=== PATIENT | female | born 1990 | race Caucasian/White ===

== ENCOUNTER 2020-03-22 09:39 | Outpatient (CLI) | payer OTHER ==
[2020-03-22 10:03] LABS: CALCIUM 9.2 mg/dL (8.5-10.3); CREATININE 0.7 mg/dL (0.4-1.0)
[2020-03-22 10:09] LABS: BASOPHILS # (AUTO) 0.1 10^3/uL (0.0-0.1); BASOPHILS % (AUTO) 0.7 %; EOSINOPHILS # (AUTO) 0.5 10^3/uL (0.0-0.7); EOSINOPHILS % (AUTO) 6.1 %; HGB - HEMOGLOBIN 14.1 g/dL (12.0-16.0); LYMPHOCYTES # (AUTO) 2.1 10^3/uL (1.5-3.5); LYMPHOCYTES % (AUTO) 26.2 %; MEAN CORPUSCULAR HGB CONC 32.6 g/dL (32.0-36.0); MEAN CORPUSCULAR VOLUME 88.7 fL (81.0-99.0); MONOCYTES # (AUTO) 0.3 10^3/uL (0.0-1.0); MONOCYTES % (AUTO) 4.2 %; NEUTROPHILS % (AUTO) 62.3 %; PLT - PLATELET COUNT 210 10^3/uL (130-450); RED BLOOD COUNT 4.87 10^6/uL (4.20-5.40); RED CELL DISTRIBUTION WIDTH 13.2 % (12.0-15.0); WHITE BLOOD COUNT 8.1 x10^3/uL (4.8-10.8)
== END 2020-03-22 09:40 | disposition home or self-care (01) ==
LOC: LAB 09:39
PROVIDERS: ATTEND Physician Assistant
DX: Q61.9 Cystic kidney disease, unspecified (principal); R10.9 Unspecified abdominal pain
CPT/HCPCS: 36415; 80048; 85025

== ENCOUNTER 2020-03-22 10:02 | Outpatient (CLI) | payer OTHER ==
--- NOTE | 2020-03-22 16:12 | Ultrasound Report ---
PROCEDURE: Retroperitoneal INDICATIONS: CYSTIC KIDNEY DISEASE, ABD PAIN, HEMATURIA TECHNIQUE: Real-time scanning was performed of the retroperitoneal organs, with image documentation. COMPARISON: Renal ultrasound dated 10/14/2010. FINDINGS: Kidneys: Kidneys are mildly enlarged and symmetric. Right kidney measures 13.2 cm long; left kidney measures 13.2 cm long. Right renal cortical thickness is 1.1 cm; left renal cortical thickness is 1 .3 cm. No solid masses, hydronephrosis, or nephrolithiasis. Numerous cysts are seen in both kidneys , the largest of which is located in the left kidney measuring 5.1 x 4.7 x 4.6 cm. No solid renal mas s is identified. Bladder: Pre-void bladder volume is 294 mL. Post-void residual is 0 mL. Pre-void images demonstrat e no intraluminal masses or stones. On pre-void images, right-sided ureteral jets are noted with col or Doppler interrogation. (Of note, ureteral jets may not be detectable in up to 25% of cases due to insufficient differences in specific gravity between ureteral and bladder urine). Miscellaneous: No free pelvic fluid. IMPRESSION: 1. Kidneys are enlarged by multiple cysts bilaterally. No solid renal mass is seen. 2. No nephrolithiasis or hydronephrosis. Reviewed by: Masood Fam MD on 03/22/2020 4:10 PM PST Approved by: Masood Fam MD on 03/22/2020 4:10 PM PST Station ID: [id number]
== END 2020-03-22 10:03 | disposition home or self-care (01) ==
LOC: DI 10:02
PROVIDERS: ATTEND Physician Assistant
DX: Q61.02 Congenital multiple renal cysts (principal); Q61.9 Cystic kidney disease, unspecified; R10.9 Unspecified abdominal pain
CPT/HCPCS: 36415; 76770; 80048; 85025

== ENCOUNTER 2022-08-02 08:00 | Outpatient (CLI) | payer OTHER ==
[2022-08-02 15:46] LABS: BILIRUBIN,URINE NEGATIVE (NEGATIVE); GLUCOSE, URINE (UA) NEGATIVE (NEGATIVE); KETONES,URINE (UA) NEGATIVE (NEGATIVE); LEUKOCYTE ESTERASE, URINE NEGATIVE (NEGATIVE); NITRITE,URINE POSITIVE (NEGATIVE); OCCULT BLOOD,URINE NEGATIVE (NEGATIVE); PROTEIN,URINE NEGATIVE (NEGATIVE); UROBILINOGEN,URINE 0.2 (NORMAL) E.U./dL (NORMAL)
[2022-08-02 15:59] LABS: CLARITY,URINE HAZY (CLEAR); RBC,URINE 0-5 /HPF (0-5); SQUAMOUS EPITHELIAL CELL,UR MANY Squamous (<= Few); WBC,URINE 0-3 /HPF (0-5)
[2022-08-02 16:00] LABS: BACTERIA,URINE Moderate /HPF (None Seen)
== END 2022-08-02 23:59 | disposition home or self-care (01) ==
LOC: LAB.WC 08:00
PROVIDERS: ATTEND Nurse Practitioner
DX: Z34.90 Encounter for supervision of normal pregnancy, unspecified, unspecified trimester (principal)
CPT/HCPCS: 81001; 87086

== ENCOUNTER 2022-08-08 22:11 | Outpatient (CLI) | payer OTHER ==
--- NOTE | 2022-08-09 08:40 | Ultrasound Report ---
PROCEDURE: OB First Trimester w/TV INDICATIONS: POSITIVE TEST OUTSIDE/PRIOR DATING DATA: Last menstrual period (LMP): 06/17/2022. LMP-based estimated date of delivery (LENNIE): 03/24/2023. First dating scan (date and location): 08/08/2022. Estimated date of delivery (LENNIE) from first dating scan: 03/26/2023. The below data below was generated using the ultrasound LENNIE of 03/26/2023 TECHNIQUE: Real-time scanning was performed of the fetus and maternal pelvic organs, with image documentation. Endovaginal scanning was also performed to better visualize the fetus and maternal ovaries. COMPARISON: None FINDINGS: Single living intrauterine . Arcuate uterus, with the gestational sac within the right side. Myometrium surrounding the gestational sac. Gestational sac measures 2.5 cm. Small perige stational fluid collection measuring 2 x 1.4 x 1.3 cm. Embryo: pole measures 1.1 cm, corresponding to 7 weeks 1 day Heart rate: 145 bpm Measurement variability in dating: +/- 4 weeks by LMP, +/- 7 days by mean sac diameter (use before 6 weeks gestation if crown-rump length not able to be measured), +/- 5 days by crown-rump length (6-12 weeks gestation). Maternal organs: Ovaries are unremarkable. Left corpus luteum cysts. IMPRESSION: Single living intrauterine at 7 weeks 1 day, LENNIE of 03/26/2023. Findings are concordant wit h clinical dating. Arcuate uterus. The gestational sac lies asymmetrically to the right, and with adequate myometrial co verage. Attention on follow-up. Reviewed by: Asif Brown on 08/09/2022 8:38 AM PDT Approved by: Asif Brown on 08/09/2022 8:38 AM PDT Station ID: [id number]
== END 2022-08-08 22:12 | disposition home or self-care (01) ==
LOC: DI 22:11
PROVIDERS: ATTEND Nurse Practitioner
DX: Z34.91 Encounter for supervision of normal pregnancy, unspecified, first trimester (principal)

== ENCOUNTER 2022-08-29 08:00 | Outpatient (CLI) | payer OTHER ==
[2022-08-30 15:25] LABS: CHLAMYDIA TRACHOMATIS DNA NEGATIVE (NEGATIVE)
[2022-08-30 15:26] LABS: NEISSERIA GONORRHOEAE DNA NEGATIVE (NEGATIVE)
== END 2022-08-29 23:59 | disposition home or self-care (01) ==
LOC: LAB.R 08:00 → LAB.WC 23:59
PROVIDERS: ATTEND Obstetrics & Gynecology
DX: O09.91 Supervision of high risk pregnancy, unspecified, first trimester (principal)
CPT/HCPCS: 87491; 87591; 87661

== ENCOUNTER 2022-09-01 08:00 | Outpatient (CLI) | payer OTHER ==
[2022-09-01 10:44] LABS: CREATININE,URINE 165.4 mg/dL
== END 2022-09-01 23:59 | disposition home or self-care (01) ==
LOC: LAB.R 08:00
PROVIDERS: ATTEND Obstetrics & Gynecology
DX: Q61.3 Polycystic kidney, unspecified (principal)
CPT/HCPCS: 82570; 84156

== ENCOUNTER 2022-09-01 09:36 | Outpatient (CLI) | payer OTHER ==
[2022-09-01 10:14] LABS: BASOPHILS % (AUTO) 0.4 %; EOSINOPHILS # (AUTO) 0.2 10^3/uL (0.0-0.7); EOSINOPHILS % (AUTO) 2.3 %; HCT - HEMATOCRIT 36.2 % (37.0-47.0); HGB - HEMOGLOBIN 11.9 g/dL (12.0-16.0); LYMPHOCYTES # (AUTO) 1.8 10^3/uL (1.5-3.5); LYMPHOCYTES % (AUTO) 21.9 %; MEAN CORPUSCULAR HEMOGLOBIN 28.5 pg (27.0-31.0); MEAN CORPUSCULAR HGB CONC 32.9 g/dL (32.0-36.0); MEAN CORPUSCULAR VOLUME 86.6 fL (81.0-99.0); MEAN PLATELET VOLUME 11.3 fL (7.9-10.8); MONOCYTES # (AUTO) 0.3 10^3/uL (0.0-1.0); MONOCYTES % (AUTO) 3.8 %; NEUTROPHILS # (AUTO) 5.8 10^3/uL (1.5-6.6); NEUTROPHILS % (AUTO) 71.4 %; PLT - PLATELET COUNT 168 10^3/uL (130-450); RED BLOOD COUNT 4.18 10^6/uL (4.20-5.40); RED CELL DISTRIBUTION WIDTH 13.2 % (12.0-15.0); WHITE BLOOD COUNT 8.1 x10^3/uL (4.8-10.8)
[2022-09-01 10:38] LABS: ALBUMIN 3.4 g/dL (3.2-5.5); ALBUMIN/GLOBULIN RATIO 0.9 (1.0-2.2); BILIRUBIN,TOTAL 0.5 mg/dL (0.2-1.0); CALCIUM 8.9 mg/dL (8.5-10.3); CREATININE 0.6 mg/dL (0.4-1.0); TOTAL PROTEIN 7.4 g/dL (6.7-8.2)
[2022-09-02 06:09] LABS: HBsAG SCREEN Negative (Negative); HCV AB Non Reactive (Non Reactive); HIV SCREEN 4TH GENERATION Non Reactive (Non Reactive)
[2022-09-02 07:09] LABS: RPR Non Reactive (Non Reactive)
[2022-09-03 09:08] LABS: VARICELLA-ZOSTER AB IGG <135 index (Immune >165)
== END 2022-09-01 09:37 | disposition home or self-care (01) ==
LOC: LAB 09:36
PROVIDERS: ATTEND Obstetrics & Gynecology
DX: Z34.90 Encounter for supervision of normal pregnancy, unspecified, unspecified trimester (principal); Q61.3 Polycystic kidney, unspecified
CPT/HCPCS: 36415; 80053; 85025; 86592; 86762; 86787; 86803; 86850; 86900; 86901; 87340; 87389

== ENCOUNTER 2022-11-03 11:40 | Outpatient (CLI) | payer OTHER ==
[2022-11-06 15:09] LABS: AFP MOM 1.47 (.); GESTAT. AGE METHOD Ultrasound (.); INSULIN DEP DIABETES No (.); MATERNAL AGE AT EDD 32.9 yr (.); MULTIPLE GESTATION No (.); OPEN SPINA BIFIDA RISK 1 IN 2965 (.); RACE Caucasian (.); RESULTS Report (.); TEST RESULTS *Screen Negative* (.); WEIGHT 275 lbs (.)
== END 2022-11-03 11:41 | disposition home or self-care (01) ==
LOC: LAB 11:40
PROVIDERS: ATTEND Obstetrics & Gynecology
DX: O09.892 Supervision of other high risk pregnancies, second trimester (principal)
CPT/HCPCS: 36415; 82105

== ENCOUNTER 2022-11-05 11:12 | Outpatient (CLI) | payer OTHER ==
--- NOTE | 2022-11-06 17:46 | Ultrasound Report ---
PROCEDURE: OB Detailed Eval INDICATIONS: SUPERVISION OF OUTSIDE/PRIOR DATING DATA: Last menstrual period (LMP): 06/17/2022. LMP-based estimated date of delivery (LENNIE): 03/24/2023. First dating scan (date and location): 08/08/2022. Estimated date of delivery (LENNIE) from first dating scan: 03/26/2023. TECHNIQUE: Real-time scanning was performed of the fetus, with image documentation and biometric measurements. Endovaginal scanning: Performed COMPARISON: None. FINDINGS: General: A single living intrauterine gestation is present. Presentation: Reach Placenta: Placental position is posterior, without previa. Amniotic fluid index: 12.6 cm, within normal limits for gestational age. heart rate: 147 beats per minute. Maternal cervical canal: 3.4 cm long; normal length is 2.5 cm or more. biometrics: Biparietal diameter: 4.38 cm, 19 weeks, 2 days Head circumference: 17.6 cm, 20 weeks, 1 day Abdominal circumference: 15.4 cm, 20 weeks, 4 days Femur length: 3.5 cm, 21 weeks, 1 day Estimated gestational age from initial scan: 19 weeks, 6 days Composite gestational age from present scan: 19 weeks, 6 days Estimated weight and percentile: 372.8 g, 89.3 percentile Measurement variability in biometric dating: +/- 10 days from 12-20 weeks gestation, +/- 2 weeks from 20-30 weeks gestation, +/- 3 weeks at 30 weeks gestation or later. Anatomic survey: Neuro: Ventricles are normal at less than 10 mm. Cisterna magna is normal at 3-11 mm. Cerebellum i s normal in size and morphology. Nuchal skin fold: Normal at less than 6 mm between 14 and 20 weeks gestational age. Face: Nose and lips, facial profile are normal. Spine: No evidence for spina bifida. Heart: 4-chambered heart is present, with normal ventricular outflow tracts. Diaphragm: Diaphragm is intact. Stomach: Left-sided stomach is present. Kidneys: No hydronephrosis. Normal is less than 5 mm in 2nd trimester, less than 7 mm in 3rd trimester. Cord: 3 vessel cord has orthotopic insertion. Bladder: Normal in size. Extremities: All 4 extremities are visualized. IMPRESSION: 1. Single live intrauterine gestation with a composite gestational age of 19 weeks, 6 days which is c oncordant with dates by initial scan. 2. 89th percentile for growth. Developing macrosomia cannot be excluded. 3. No sonographic anatomic abnormalities. Reviewed by: Ayla Reyez MD on 11/06/2022 5:45 PM PDT Approved by: Ayla Reyez MD on 11/06/2022 5:45 PM PDT Station ID: [id number]
== END 2022-11-05 11:13 | disposition home or self-care (01) ==
LOC: DI 11:12
PROVIDERS: ATTEND Obstetrics & Gynecology
DX: O09.892 Supervision of other high risk pregnancies, second trimester (principal); Z3A.19 19 weeks gestation of pregnancy

== ENCOUNTER 2022-12-16 22:21 | Emergency (ER) | payer OTHER ==
[2022-12-16 23:14] LABS: BILIRUBIN,URINE NEGATIVE (NEGATIVE); GLUCOSE, URINE (UA) NEGATIVE (NEGATIVE); KETONES,URINE (UA) NEGATIVE (NEGATIVE); LEUKOCYTE ESTERASE, URINE SMALL (NEGATIVE); NITRITE,URINE POSITIVE (NEGATIVE); OCCULT BLOOD,URINE NEGATIVE (NEGATIVE); PH,URINE 5.5 PH (5.0-7.5); PROTEIN,URINE NEGATIVE (NEGATIVE); UROBILINOGEN,URINE 0.2 (NORMAL) E.U./dL (NORMAL)
[2022-12-16 23:23] LABS: CLARITY,URINE HAZY (CLEAR); HCG UR QUAL POSITIVE
[2022-12-16 23:27] LABS: ALBUMIN/GLOBULIN RATIO 0.8 (1.0-2.2); BILIRUBIN,TOTAL 0.4 mg/dL (0.2-1.0); CALCIUM 8.4 mg/dL (8.5-10.3); CREATININE 0.7 mg/dL (0.4-1.0); POTASSIUM 3.8 mmol/L (3.5-5.0); TOTAL PROTEIN 6.9 g/dL (6.7-8.2)
[2022-12-16 23:36] LABS: BASOPHILS % (AUTO) 0.2 %; EOSINOPHILS # (AUTO) 0.3 10^3/uL (0.0-0.7); EOSINOPHILS % (AUTO) 2.2 %; HCT - HEMATOCRIT 31.4 % (37.0-47.0); HGB - HEMOGLOBIN 10.2 g/dL (12.0-16.0); LYMPHOCYTES # (AUTO) 1.9 10^3/uL (1.5-3.5); LYMPHOCYTES % (AUTO) 17.1 %; MEAN CORPUSCULAR HEMOGLOBIN 29.8 pg (27.0-31.0); MEAN CORPUSCULAR HGB CONC 32.5 g/dL (32.0-36.0); MEAN CORPUSCULAR VOLUME 91.8 fL (81.0-99.0); MEAN PLATELET VOLUME 10.4 fL (7.9-10.8); MONOCYTES # (AUTO) 0.4 10^3/uL (0.0-1.0); MONOCYTES % (AUTO) 3.9 %; NEUTROPHILS # (AUTO) 8.7 10^3/uL (1.5-6.6); NEUTROPHILS % (AUTO) 76.1 %; PLT - PLATELET COUNT 222 10^3/uL (130-450); RED BLOOD COUNT 3.42 10^6/uL (4.20-5.40); RED CELL DISTRIBUTION WIDTH 14.2 % (12.0-15.0); WHITE BLOOD COUNT 11.4 x10^3/uL (4.8-10.8)
[2022-12-16 23:38] LABS: AMORPHOUS SEDIMENT,UR Few /LPF; BACTERIA,URINE Many /HPF (None Seen); RBC,URINE 0-5 /HPF (0-5); SQUAMOUS EPITHELIAL CELL,UR MANY Squamous (<= Few)
--- NOTE | 2022-12-17 00:08 | ED Physician Documentation ---
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 Symptoms began earlier today without inciting event. Patient is approximately 26 weeks , has had US in this demonstrating IUP. Denies vaginal bleeding, denies pelvic pain. Patient has had sensation of incomplete voiding when urinating, also since earlier today. Denies fever, hematuria, Review of Systems Constitutional: denies: Fever GI: reports: Nausea, Vomiting. 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 : Other HEENT: None Psych: Depression Musculoskeletal: None Derm: None - Past Surgical History Past Surgical History: No - Present Medications Home Medications: Ambulatory Orders Medication Instructions Recorded Confirmed Aspirin [[place] Aspirin] 81 mg PO DAILY 12/16/22 12/16/22 Venlafaxine ER [Effexor ER] 75 mg PO DAILY 12/16/22 12/16/22 Amox/Clav 875/125 [Augmentin 1 tablet PO Q12H 7 Days #14 tablet 12/17/22 875/125 Tab] - Allergies Allergies/Adverse Reactions: Allergies Allergy/AdvReac Type Severity Reaction Status Date / Time No Known Drug Allergies Allergy Verified 12/16/22 22:31 - Social History Does the pt smoke?: No Smoking Status: Never smoker - Immunizations Immunizations are current?: Yes PD ED PE NORMAL - Vitals Vital signs reviewed: Yes - General General: Alert and oriented X 3, No acute distress, Well developed/nourished - Abdomen Abdomen: Soft, Non tender, Other - Back Back: No CVA TTP - Derm Derm: Normal color, Warm and dry Results - Vitals Vitals: Oxygen O2 Source Room air - Labs Labs: Laboratory Tests 12/16/22 12/16/22 12/16/22 22:35 23:10 23:30 WBC 11.4 H RBC 3.42 L Hgb 10.2 L Hct 31.4 L MCV 91.8 MCH 29.8 MCHC 32.5 RDW 14.2 Plt Count 222 MPV 10.4 Neut # (Auto) 8.7 H Lymph # (Auto) 1.9 [place] # (Auto) 0.4 Eos # (Auto) 0.3 Baso # (Auto) 0.0 Absolute Nucleated RBC 0.00 Nucleated RBC % 0.0 Sodium 136 Potassium 3.8 Chloride 105 Carbon Dioxide 20 L Anion Gap 11.0 BUN 11 Creatinine 0.7 Estimated GFR (MDRD) 97 Glucose 99 Calcium 8.4 L Total Bilirubin 0.4 AST 16 ALT 14 Alkaline Phosphatase 85 Total Protein 6.9 Albumin 3.0 L Globulin 3.9 Albumin/Globulin Ratio 0.8 L Lipase 39 Urine Color YELLOW Urine Clarity HAZY Urine pH 5.5 Ur Specific [place] >=1.030 H Urine Protein NEGATIVE Urine Glucose (UA) NEGATIVE Urine Ketones NEGATIVE Urine Occult Blood NEGATIVE Urine Nitrite POSITIVE H Urine Bilirubin NEGATIVE Urine Urobilinogen 0.2 (NORMAL) Ur Leukocyte Esterase SMALL H Urine RBC 0-5 Urine WBC 6-10 H Ur Squamous Epith Cells MANY Squamous H Amorphous Sediment Few Urine Bacteria Many H Ur Microscopic Review INDICATED Urine Culture Comments NOT INDICATED Urine HCG, Qual POSITIVE PD Medical Decision Making - ED course Complexity details: reviewed results, re-evaluated patient, considered differential, d/w patient ED course: Normal ER abdominal panel including LFTs, lipase. Mild leukocytosis (WBC 11.4) and hgb slightly low at 10.2. UA is positive for nitrites. On microscopy, no RBC, 6-10 wbc/hpf, many bacteria but also many squamous cells. I performed bedside US of RUQ (retail key holder is not available at this time at [facility]). It appears that there are gallstones in a non-distended gallbladder; negative sonographic hinojosa's. Given normal LFTs and that patient is in NAD and declines pain medication, this finding can be further evaluated in outpatient setting if necessary. Biliary colic could account for some of her symptoms, though my ultrasound findings could be incidental. Given abnormal UA in , will treat for UTI (given augmentin in ED and rx for one-week course is e-prescribed to patient's pharmacy of choice). 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, next available appointments Departure - Departure Disposition: 01 Home, Self Care Clinical Impression: Gallstones Urinary tract infection Qualifiers: Urinary tract infection type: acute cystitis Hematuria presence: without hematuria Qualified Code(s): N30.00 - Acute cystitis without hematuria Condition: Good Instructions: ED UTI Cystitis Female, ED Abdominal Pain Preg Gallstones Follow-Up: Bret Snowden DO [Primary Care Provider] - Prescriptions: Amox/Clav 875/125 [Augmentin 875/125 Tab] 1 tablet PO Q12H 7 Days #14 tablet Comments: There were no concerning nor diagnostic findings on your blood test tonight. The urinalysis has some findings to suggest a urinary tract infection; given that your symptoms are also consistent with UTI and risk of complications of untreated UTI in , you were given the first dose of an antibiotic (augmentin) in the ER, and a prescription for a one-week course of this antibiotic has been electronically submitted to [facility] pharmacy in [place]. On my bedside ultrasound, it appears to me that you have a few gallstones in your gallbladder. This could account for your symptoms. Your liver function t ests (blood tests) were normal, and you have indicated that the pain is not severe enough to require prescription pain medication. Overall, this would indicate that you can have a follow-up/confirmatory ultrasound in the outpatient setting at the discretion of your primary care provider. I recommend that you contact your primary care provider on Sunday when their office opens to arrange for next available appointment for reevaluation of both the urinary tract infection symptoms as well as possible gallstone workup (ultrasound). Forms: PCP List Discharge Date/Time: 12/17/22 01:06
[2022-12-17] MEDS ORDERED: AMOX/CLAV 875 MG/125 MG TABLET PO STA (00:44)
[2022-12-17] MEDS ORDERED: SODIUM CHLORIDE 0.9% 1,000 ML IV STA (00:52)
[2022-12-17 01:06] VITALS: BP 140/86; O2SAT 100
== END 2022-12-17 01:06 | disposition home or self-care (01) ==
LOC: ED 22:21
DX: O99.612 Diseases of the digestive system complicating pregnancy, second trimester (principal); K80.20 Calculus of gallbladder without cholecystitis without obstruction; O23.12 Infections of bladder in pregnancy, second trimester; Z3A.26 26 weeks gestation of pregnancy; Z79.82 Long term (current) use of aspirin; Z79.899 Other long term (current) drug therapy
CPT/HCPCS: 36415; 80053; 81001; 81025; 83690; 85025; 99283; 99284; A9270; 81003; 87086

== ENCOUNTER 2022-12-29 10:28 | Outpatient (CLI) | payer OTHER ==
[2022-12-29 12:06] LABS: HCT - HEMATOCRIT 33.9 % (37.0-47.0); HGB - HEMOGLOBIN 11.1 g/dL (12.0-16.0); MEAN CORPUSCULAR HEMOGLOBIN 29.7 pg (27.0-31.0); MEAN CORPUSCULAR HGB CONC 32.7 g/dL (32.0-36.0); MEAN CORPUSCULAR VOLUME 90.6 fL (81.0-99.0); MEAN PLATELET VOLUME 10.2 fL (7.9-10.8); RED BLOOD COUNT 3.74 10^6/uL (4.20-5.40); WHITE BLOOD COUNT 9.6 x10^3/uL (4.8-10.8)
== END 2022-12-29 10:29 | disposition home or self-care (01) ==
LOC: LAB 10:28
PROVIDERS: ATTEND Obstetrics & Gynecology
DX: O09.892 Supervision of other high risk pregnancies, second trimester (principal)
CPT/HCPCS: 36415; 82950; 85027; 86850

== ENCOUNTER 2023-02-01 10:13 | Outpatient (CLI) | payer OTHER ==
[2023-02-01 10:44] LABS: HCT - HEMATOCRIT 30.7 % (37.0-47.0); HGB - HEMOGLOBIN 10.2 g/dL (12.0-16.0); MEAN CORPUSCULAR HEMOGLOBIN 29.4 pg (27.0-31.0); MEAN CORPUSCULAR HGB CONC 33.2 g/dL (32.0-36.0); MEAN CORPUSCULAR VOLUME 88.5 fL (81.0-99.0); MEAN PLATELET VOLUME 10.5 fL (7.9-10.8); RED BLOOD COUNT 3.47 10^6/uL (4.20-5.40); RED CELL DISTRIBUTION WIDTH 14.4 % (12.0-15.0); WHITE BLOOD COUNT 9.7 x10^3/uL (4.8-10.8)
[2023-02-01 11:03] LABS: ALBUMIN 3.4 g/dL (3.2-5.5); ALBUMIN/GLOBULIN RATIO 1.1 (1.0-2.2); BILIRUBIN,TOTAL 0.4 mg/dL (0.2-1.0); CREATININE 0.4 mg/dL (0.6-1.3); POTASSIUM 4.1 mmol/L (3.5-4.5); TOTAL PROTEIN 6.5 g/dL (6.4-8.9); URIC ACID 5.8 mg/dL (2.3-6.6)
[2023-02-01 11:03] LABS: CREATININE,URINE 145.1 mg/dL; PROTEIN/CREATININE RATIO,URINE 0.2 (<=0.2)
== END 2023-02-01 10:14 | disposition home or self-care (01) ==
LOC: LAB 10:13
PROVIDERS: ATTEND Nurse Practitioner
DX: O16.9 Unspecified maternal hypertension, unspecified trimester (principal); Z87.59 Personal history of other complications of pregnancy, childbirth and the puerperium
CPT/HCPCS: 36415; 80053; 82570; 84156; 84550; 85027

== ENCOUNTER 2023-02-13 07:04 | Outpatient (CLI) | payer OTHER ==
--- NOTE | 2023-02-13 10:12 | Ultrasound Report ---
PROCEDURE: OB Biophysical Profile INDICATIONS: HYPERTENSION OUTSIDE/PRIOR DATING DATA: Last menstrual period (LMP): 06/17/22. LMP-based estimated date of delivery (LENNIE): 03/24/2023. First dating scan (date and location): 08/08/2022. Estimated date of delivery (LENNIE) from first dating scan: 03/26/2023. The below data below was generated using the ultrasound LENNIE of 03/26/2023 TECHNIQUE: Real-time scanning was performed of the fetus, with image documentation and biometric callie surements. Biophysical profile was also obtained. Endovaginal scanning: Not performed COMPARISON: 11/05/2022 FINDINGS: General: A single living intrauterine gestation is present. Presentation: Cephalic Placenta: Placental position is posterior, without previa. Amniotic fluid index: 14.7 cm, within normal limits for gestational age. heart rate: 166 beats per minute. Maternal cervical canal: Not seen at late stage of Estimated gestational age from initial scan: 34 weeks 1 day Biophysical profile: Tone: 2 points. Movement: 2 points. Respiration: 0 points. Largest pocket of fluid: 2 points. Umbilical artery Doppler: 2.65, 2.36, 2.19 IMPRESSION: 1. Living third trimester intrauterine with no sonographic evidence of complications. 2. Ultrasound biophysical profile is 6 out of 8 3. Normal cord Dopplers. Reviewed by: Zackery Mcconnell MD on 02/13/2023 10:10 AM PDT Approved by: Zackery Mcconnell MD on 02/13/2023 10:10 AM PDT Station ID: [id number]
== END 2023-02-13 07:05 | disposition home or self-care (01) ==
LOC: DI 07:04
PROVIDERS: ATTEND Nurse Practitioner
DX: O16.3 Unspecified maternal hypertension, third trimester (principal); O99.213 Obesity complicating pregnancy, third trimester; Z3A.34 34 weeks gestation of pregnancy; Z87.59 Personal history of other complications of pregnancy, childbirth and the puerperium

== ENCOUNTER 2023-02-13 07:49 | Outpatient (CLI) | payer OTHER ==
--- NOTE | 2023-02-13 08:15 | PROCEDURE REPORT ---
- HPI Diagnosis/Indication for NST: Other (Polycystic Kidney Disease.) Vital Signs Temperature 97.9 F 02/13/23 07:55 Heart Rate 76 02/13/23 07:55 Respiratory Rate 18 02/13/23 07:55 Blood Pressure 145/85 H 02/13/23 07:55 Temperature 97.9 F 02/13/23 07:55 Heart Rate 76 02/13/23 07:55 Respiratory Rate 18 02/13/23 07:55 Blood Pressure 145/85 H 02/13/23 07:55 O2 Saturation If not protocol: Oxygen Flow, liters/minute - Results and Plan Plan: Patient is a 32-year-old -0-0-1 at 34 weeks 2 days gestation here for scheduled NST. NST Performed 02/13/2023 NST Read 02/13/2023 FHT: 135 bpm baseline, moderate variability, accelerations present, no decelerations. Reactive NST [place]: Quiescent Diagnosis 34 weeks gestation Polycystic kidney disease Continue with twice-weekly NST.
[2023-02-13 08:17] VITALS: BP 145/85
== END 2023-02-13 09:00 | disposition home or self-care (01) ==
LOC: WFO 07:49 → FBP 07:52 → WFO 09:00
PROVIDERS: ATTEND Obstetrics & Gynecology
DX: O16.9 Unspecified maternal hypertension, unspecified trimester (principal); O26.833 Pregnancy related renal disease, third trimester; Z3A.34 34 weeks gestation of pregnancy
CPT/HCPCS: 59025

== ENCOUNTER 2023-02-16 09:01 | Outpatient (CLI) | payer OTHER ==
[2023-02-16 09:24] VITALS: O2SAT 98
[2023-02-16 09:53] VITALS: BP 125/73
--- NOTE | 2023-02-16 10:24 | PROCEDURE REPORT ---
- HPI Diagnosis/Indication for NST: Other (Polycystic kidney disease) Vital Signs Temperature 98.2 F 02/16/23 09:22 Heart Rate 85 02/16/23 09:22 Respiratory Rate 17 02/16/23 09:22 Blood Pressure 130/91 H 02/16/23 09:22 O2 Saturation 98 02/16/23 09:22 Temperature 98.2 F 02/16/23 09:22 Heart Rate 81 02/16/23 09:45 Respiratory Rate 17 02/16/23 09:22 Blood Pressure 125/73 02/16/23 09:45 O2 Saturation 98 02/16/23 09:22 If not protocol: Oxygen Flow, liters/minute - Results and Plan Plan: Patient is a 32-year-old -0-0-1 at 34 weeks 5 days gestation here for scheduled NST. NST Performed 02/16/2023 NST Read 02/16/2023 FHT: 135 bpm baseline, moderate variability, accelerations present, no decelerations. Reactive NST [place]: Quiescent Diagnosis 34 weeks gestation Polycystic kidney disease Continue with twice-weekly NST.
== END 2023-02-16 10:35 | disposition home or self-care (01) ==
LOC: WFO 09:01 → FBP 09:20 → WFO 10:35
PROVIDERS: ATTEND Obstetrics & Gynecology
DX: O26.833 Pregnancy related renal disease, third trimester (principal); N28.1 Cyst of kidney, acquired; O16.9 Unspecified maternal hypertension, unspecified trimester; O99.213 Obesity complicating pregnancy, third trimester; Z3A.34 34 weeks gestation of pregnancy
CPT/HCPCS: 59025

== ENCOUNTER 2023-02-20 09:57 | Outpatient (CLI) | payer OTHER ==
[2023-02-20 10:10] VITALS: BP 131/79
--- NOTE | 2023-02-20 10:47 | PROCEDURE REPORT ---
- HPI Current EDU 03/24/23 Gestation 35 Weeks and 3 Days 2 Para 1 Vital Signs Temperature 98.2 F 02/20/23 10:02 Heart Rate 96 02/20/23 10:02 Respiratory Rate 18 02/20/23 10:02 Blood Pressure 131/79 H 02/20/23 10:02 Temperature 98.2 F 02/20/23 10:02 Heart Rate 96 02/20/23 10:02 Respiratory Rate 18 02/20/23 10:02 Blood Pressure 131/79 H 02/20/23 10:02 O2 Saturation If not protocol: Oxygen Flow, liters/minute - NST Procedure NST Procedure Start Date 02/20/23 Start Time 10:05 Stop Time 10:31 Vibroacoustic Stimulation Used No Patient States Movement Yes 35+ weeks, Gestational hypertension 150, moderate variability, positive accelerations, negative decelerations Reactive NST
== END 2023-02-20 10:40 | disposition home or self-care (01) ==
LOC: WFO 09:57 → FBP 09:57 → WFO 10:40
PROVIDERS: ATTEND Obstetrics & Gynecology Obstetrics
DX: O13.3 Gestational [pregnancy-induced] hypertension without significant proteinuria, third trimester (principal); Z3A.35 35 weeks gestation of pregnancy
CPT/HCPCS: 59025

== ENCOUNTER 2023-02-23 08:56 | Outpatient (CLI) | payer OTHER ==
[2023-02-23 10:49] VITALS: BP 115/62
--- NOTE | 2023-03-02 22:56 | PROCEDURE REPORT ---
- HPI Diagnosis/Indication for NST: Other (obesity) Current EDU 03/25/23 Gestation 35 Weeks and 5 Days 2 Para 1 Vital Signs Temperature 97.9 F 02/23/23 09:19 Heart Rate 65 02/23/23 09:19 Respiratory Rate 16 02/23/23 09:19 Blood Pressure 115/69 02/23/23 09:19 Temperature 97.9 F 02/23/23 10:00 Heart Rate 64 02/23/23 10:00 Respiratory Rate 16 02/23/23 10:00 Blood Pressure 115/62 02/23/23 10:00 O2 Saturation If not protocol: Oxygen Flow, liters/minute - NST Procedure NST Procedure Start Date 02/23/23 Start Time 09:05 Stop Time 10:00 Vibroacoustic Stimulation Used No Patient States Movement Yes NST reviewed. baseline 145. + acels. no decels. mod variability. - Results and Plan Findings/Impression: reactive NST
== END 2023-02-23 10:05 | disposition home or self-care (01) ==
LOC: WFO 08:56 → FBP 09:14 → WFO 10:05
PROVIDERS: ATTEND Obstetrics & Gynecology
DX: O16.3 Unspecified maternal hypertension, third trimester (principal); O99.213 Obesity complicating pregnancy, third trimester; E66.01 Morbid (severe) obesity due to excess calories; Z3A.35 35 weeks gestation of pregnancy; Z87.59 Personal history of other complications of pregnancy, childbirth and the puerperium
CPT/HCPCS: 59025

== ENCOUNTER 2023-02-26 08:00 | Outpatient (CLI) | payer OTHER | END 2023-02-26 23:59 | disposition home or self-care (01) | LOC: LAB.WC 08:00 | PROVIDERS: ATTEND Obstetrics & Gynecology | DX: Z36.85 Encounter for antenatal screening for Streptococcus B (principal) | CPT/HCPCS: 87797 ==

== ENCOUNTER 2023-02-26 14:33 | Outpatient (CLI) | payer OTHER ==
[2023-02-26 15:15] LABS: BASOPHILS % (AUTO) 0.3 %; EOSINOPHILS # (AUTO) 0.1 10^3/uL (0.0-0.7); EOSINOPHILS % (AUTO) 0.9 %; HCT - HEMATOCRIT 32.3 % (37.0-47.0); HGB - HEMOGLOBIN 10.7 g/dL (12.0-16.0); LYMPHOCYTES # (AUTO) 2.2 10^3/uL (1.5-3.5); LYMPHOCYTES % (AUTO) 20.9 %; MEAN CORPUSCULAR HGB CONC 33.1 g/dL (32.0-36.0); MEAN CORPUSCULAR VOLUME 87.5 fL (81.0-99.0); MEAN PLATELET VOLUME 11.7 fL (7.9-10.8); MONOCYTES # (AUTO) 0.4 10^3/uL (0.0-1.0); MONOCYTES % (AUTO) 3.5 %; NEUTROPHILS # (AUTO) 7.8 10^3/uL (1.5-6.6); NEUTROPHILS % (AUTO) 73.5 %; PLT - PLATELET COUNT 209 10^3/uL (130-450); RED BLOOD COUNT 3.69 10^6/uL (4.20-5.40); RED CELL DISTRIBUTION WIDTH 14.1 % (12.0-15.0); WHITE BLOOD COUNT 10.6 x10^3/uL (4.8-10.8)
[2023-02-26 15:28] VITALS: BP 153/86
[2023-02-26 15:39] LABS: ALBUMIN 3.4 g/dL (3.2-5.5); ALBUMIN/GLOBULIN RATIO 1.1 (1.0-2.2); BILIRUBIN,TOTAL 0.3 mg/dL (0.2-1.0); CALCIUM 8.9 mg/dL (8.5-10.3); CREATININE 0.7 mg/dL (0.6-1.3); POTASSIUM 4.1 mmol/L (3.5-4.5); TOTAL PROTEIN 6.4 g/dL (6.4-8.9)
--- NOTE | 2023-02-26 16:01 | PROCEDURE REPORT ---
- HPI Current EDU 03/26/23 Gestation 36 Weeks and 0 Days 2 Para 1 Vital Signs Temperature 98.2 F 02/26/23 14:45 Heart Rate 79 02/26/23 14:45 Respiratory Rate 16 02/26/23 14:45 Blood Pressure 153/86 H 02/26/23 14:45 Temperature 98.2 F 02/26/23 15:25 Heart Rate 74 02/26/23 15:25 Respiratory Rate 16 02/26/23 15:25 Blood Pressure 153/86 H 02/26/23 15:25 O2 Saturation If not protocol: Oxygen Flow, liters/minute - NST Procedure NST Procedure Start Date 02/26/23 Start Time 14:45 Stop Time 15:15 Vibroacoustic Stimulation Used No Patient States Movement Yes - Results and Plan Plan: Patient is a 32-year-old -0-0-1 at 36 weeks 1 day gestation here for scheduled NST. NST Performed 02/26/2023 NST Read 02/26/2023 FHT: 130 bpm baseline, moderate variability, accelerations present, no decelerations. Reactive NST [place]: Quiescent Diagnosis 36 weeks gestation Polycystic kidney disease Chronic hypertension -Sent from clinic today, will get outpatient labs while she is in triage. We will follow-up outpatient. Continue with twice-weekly NST.
[2023-02-26 16:20] LABS: CREATININE,URINE 259.2 mg/dL; PROTEIN/CREATININE RATIO,URINE 0.2 (<=0.2)
== END 2023-02-26 15:30 | disposition home or self-care (01) ==
LOC: WFO 14:33 → FBP 14:34 → WFO 15:30
PROVIDERS: ATTEND Obstetrics & Gynecology
DX: O16.3 Unspecified maternal hypertension, third trimester (principal); O99.891 Other specified diseases and conditions complicating pregnancy; N28.1 Cyst of kidney, acquired; Z3A.36 36 weeks gestation of pregnancy; O99.213 Obesity complicating pregnancy, third trimester; E66.01 Morbid (severe) obesity due to excess calories; Z36.85 Encounter for antenatal screening for Streptococcus B
CPT/HCPCS: 36415; 59025; 80053; 82570; 84156; 85025; 87797; 99215

== ENCOUNTER 2023-03-01 15:03 | Outpatient (CLI) | payer OTHER ==
[2023-03-01 15:22] VITALS: BP 142/82; O2SAT 100
--- NOTE | 2023-03-01 17:16 | PROCEDURE REPORT ---
- HPI Current EDU 03/25/23 Gestation 36 Weeks and 4 Days 2 Para 1 Vital Signs Temperature 98.2 F 03/01/23 15:12 Heart Rate 67 03/01/23 15:12 Respiratory Rate 16 03/01/23 15:12 Blood Pressure 142/82 H 03/01/23 15:12 O2 Saturation 100 03/01/23 15:12 Temperature 98.1 F 03/01/23 16:11 Heart Rate 67 03/01/23 15:12 Respiratory Rate 16 03/01/23 15:12 Blood Pressure 142/82 H 03/01/23 15:12 O2 Saturation 100 03/01/23 15:12 If not protocol: Oxygen Flow, liters/minute - NST Procedure NST Procedure Start Date 03/01/23 Start Time 15:10 Stop Time 15:40 Vibroacoustic Stimulation Used No Patient States Movement Yes - Results and Plan Plan: Patient is a 32-year-old -0-0-1 at 36 weeks gestation here for scheduled NST. NST Performed 03/01/2023 NST Read 03/01/2023 FHT: 130 bpm baseline, moderate variability, accelerations present, no decelerations. Reactive NST [place]: Quiescent Diagnosis 36 weeks gestation Polycystic kidney disease Chronic hypertension Continue with twice-weekly NST.
== END 2023-03-01 16:10 | disposition home or self-care (01) ==
LOC: WFO 15:03 → FBP 15:05 → WFO 16:10
PROVIDERS: ATTEND Nurse Practitioner
DX: O16.3 Unspecified maternal hypertension, third trimester (principal); O99.213 Obesity complicating pregnancy, third trimester; E66.01 Morbid (severe) obesity due to excess calories; Z3A.36 36 weeks gestation of pregnancy; Z87.59 Personal history of other complications of pregnancy, childbirth and the puerperium; O99.891 Other specified diseases and conditions complicating pregnancy; N28.1 Cyst of kidney, acquired
CPT/HCPCS: 59025

== ENCOUNTER 2023-03-05 12:55 | Outpatient (CLI) | payer OTHER ==
[2023-03-05 13:17] VITALS: BP 141/83; O2SAT 99
[2023-03-05 13:53] LABS: HCT - HEMATOCRIT 31.7 % (37.0-47.0); HGB - HEMOGLOBIN 10.3 g/dL (12.0-16.0); MEAN CORPUSCULAR HEMOGLOBIN 29.3 pg (27.0-31.0); MEAN CORPUSCULAR HGB CONC 32.5 g/dL (32.0-36.0); MEAN CORPUSCULAR VOLUME 90.3 fL (81.0-99.0); MEAN PLATELET VOLUME 11.1 fL (7.9-10.8); RED BLOOD COUNT 3.51 10^6/uL (4.20-5.40); RED CELL DISTRIBUTION WIDTH 14.6 % (12.0-15.0); WHITE BLOOD COUNT 9.1 x10^3/uL (4.8-10.8)
[2023-03-05 14:07] LABS: CREATININE,URINE 115.9 mg/dL; PROTEIN/CREATININE RATIO,URINE 0.2 (<=0.2)
[2023-03-05 14:08] LABS: URIC ACID 7.3 mg/dL (2.3-6.6)
--- NOTE | 2023-03-05 19:58 | PROCEDURE REPORT ---
- HPI Diagnosis/Indication for NST: Gestational Hypertension Current EDU 03/25/23 Gestation 37 Weeks and 1 Days 2 Para 1 Vital Signs Temperature 98.1 F 03/05/23 13:03 Heart Rate 83 03/05/23 13:03 Respiratory Rate 18 03/05/23 13:03 Blood Pressure 141/83 H 03/05/23 13:03 Temperature 98.1 F 03/05/23 13:13 Heart Rate 80 03/05/23 13:13 Respiratory Rate 18 03/05/23 13:13 Blood Pressure 141/83 H 03/05/23 13:13 O2 Saturation 99 03/05/23 13:06 If not protocol: Oxygen Flow, liters/minute - NST Procedure NST Procedure Start Date 03/05/23 Start Time 13:00 Stop Time 13:30 Vibroacoustic Stimulation Used No Patient States Movement Yes nst reactive. baseline 135. no decels. + acels. moderate variability. - Results and Plan Findings/Impression: reactive nst. Plan: has appt in office after.
== END 2023-03-05 13:50 | disposition home or self-care (01) ==
LOC: WFO 12:55 → FBP 12:57 → WFO 13:50
PROVIDERS: ATTEND Nurse Practitioner
DX: O16.3 Unspecified maternal hypertension, third trimester (principal); O99.213 Obesity complicating pregnancy, third trimester; Z3A.37 37 weeks gestation of pregnancy; Z87.59 Personal history of other complications of pregnancy, childbirth and the puerperium
CPT/HCPCS: 36415; 59025; 82550; 82570; 84156; 84450; 84550; 85027

== ENCOUNTER 2023-03-07 12:16 | Inpatient (IN) | payer OTHER ==
[2023-03-07] MEDS ORDERED: CARBOPROST TROMETHAMINE 250 MCG/ML AMP IM PRN (12:30)
[2023-03-07] MEDS ORDERED: fentaNYL 100 MCG/2 ML VIAL IVP PRN (12:30)
[2023-03-07] MEDS ORDERED: METHYLERGONOVINE 0.2 MG/ML VIAL IM PRN (12:30)
[2023-03-07] MEDS ORDERED: OXYTOCIN 10 UNIT/ML VIAL IM PRN (12:30)
[2023-03-07] MEDS ORDERED: SODIUM CHLORIDE FLUSH 0.9% 10 ML SYRINGE IVP PRN (12:30)
[2023-03-07] MEDS ORDERED: LABETALOL 20 MG/4 ML SYRINGE IVP PRN ×3 (12:30)
[2023-03-07] MEDS ORDERED: lidocaine 1% 20 ML MDV ID PRN (12:30)
[2023-03-07] MEDS ORDERED: TRANEXAMIC ACID IN NACL 1,000 MG/100 ML BAG IV PRN (12:30)
[2023-03-07] MEDS ORDERED: OXYTOCIN/SODIUM CHLORIDE 500 ML IV PRN (12:30)
[2023-03-07] MEDS ORDERED: hydrALAZINE INJ 20 MG/ML VIAL IVP PRN ×2 (12:30)
[2023-03-07] MEDS ORDERED: LACTATED RINGERS 1,000 ML IV PRN (12:30)
[2023-03-07] MEDS ORDERED: miSOPROStoL 200 MCG TABLET PR PRN (12:30)
[2023-03-07] MEDS ORDERED: TERBUTALINE 1 MG/ML VIAL SUBQ PRN (12:30)
[2023-03-07] MEDS ORDERED: miSOPROStoL 200 MCG TABLET BC PRN (12:30)
[2023-03-07 13:47] LABS: CREATININE,URINE 108.6 mg/dL; PROTEIN/CREATININE RATIO,URINE 0.1 (<=0.2)
[2023-03-07] MEDS: LACTATED RINGERS 1,000 ML IV SCH ×2 (14:00→23:26)
[2023-03-07 14:17] LABS: BASOPHILS % (AUTO) 0.2 %; EOSINOPHILS # (AUTO) 0.1 10^3/uL (0.0-0.7); EOSINOPHILS % (AUTO) 0.9 %; HCT - HEMATOCRIT 32.2 % (37.0-47.0); HGB - HEMOGLOBIN 10.3 g/dL (12.0-16.0); LYMPHOCYTES # (AUTO) 1.8 10^3/uL (1.5-3.5); LYMPHOCYTES % (AUTO) 17.5 %; MEAN CORPUSCULAR HEMOGLOBIN 29.1 pg (27.0-31.0); MEAN PLATELET VOLUME 11.2 fL (7.9-10.8); MONOCYTES # (AUTO) 0.3 10^3/uL (0.0-1.0); MONOCYTES % (AUTO) 3.3 %; NEUTROPHILS % (AUTO) 77.5 %; PLT - PLATELET COUNT 215 10^3/uL (130-450); RED BLOOD COUNT 3.54 10^6/uL (4.20-5.40); RED CELL DISTRIBUTION WIDTH 14.6 % (12.0-15.0); WHITE BLOOD COUNT 10.3 x10^3/uL (4.8-10.8)
[2023-03-07] MEDS: OXYTOCIN/SODIUM CHLORIDE 500 ML IV SCH (14:20)
[2023-03-07 14:21] LABS: ALBUMIN 3.4 g/dL (3.2-5.5); BILIRUBIN,TOTAL 0.4 mg/dL (0.2-1.0); CALCIUM 9.2 mg/dL (8.5-10.3); CREATININE 0.7 mg/dL (0.6-1.3); POTASSIUM 3.9 mmol/L (3.5-4.5); TOTAL PROTEIN 6.8 g/dL (6.4-8.9)
--- NOTE | 2023-03-07 14:26 | ANESTHESIA ---
Pre-Anesthesia VS, & Labs - Diagnosis labor pain - Procedure labor epidural Vital Signs: Temp Pulse Resp BP Pulse Ox O2 Flow Rate 98.5 C H 83 18 136/79 H 03/07/23 12:58 03/07/23 12:58 03/07/23 12:58 03/07/23 12:58 Height: 5 ft 7 in - NPO Other - Is Patient ?: Yes - Lab Results Current Lab Results: Laboratory Tests 03/07/23 13:55: WBC 10.3, RBC 3.54 L, Hgb 10.3 L, Hct 32.2 L, MCV 91.0, MCH 29.1, MCHC 32.0, RDW 14.6, Plt Count 215, MPV 11.2 H, Neut # (Auto) 8.0 H, Lymph # (Auto) 1.8, [place] # (Auto) 0.3, Eos # (Auto) 0.1, Baso # (Auto) 0.0, Absolute Nucleated RBC 0.00, Nucleated RBC % 0.0 03/07/23 13:55: Sodium 134 L, Potassium 3.9, Chloride 102, Carbon Dioxide 27, Anion Gap 5.0 L, BUN 10, Creatinine 0.7, Estimated GFR (MDRD) 97, Glucose 86, Calcium 9.2, Total Bilirubin 0.4, AST 9 L, ALT 7 L, Alkaline Phosphatase 100, Total Protein 6.8, Albumin 3.4, Globulin 3.4, Albumin/Globulin Ratio 1.0 Fish Bones: 03/07/23 13:55 03/07/23 13:55 Home Medications and Allergies Active Medications Carboprost Tromethamine (Carboprost Tromethamine 250 Mcg/Ml Amp) 250 mcg IM .ONCE PRN PRN Reason: Hemorrhage Fentanyl (Fentanyl 100 Mcg/2 Ml Vial) 50 mcg IVP Q1H PRN PRN Reason: Severe Pain (score 7-10) Hydralazine HCl (Hydralazine Inj 20 Mg/Ml Vial) 5 - 10 mg IVP Q20M PRN; Protocol PRN Reason: SBP> or= 160 OR DBP> or= 110 Hydralazine HCl (Hydralazine Inj 20 Mg/Ml Vial) 10 mg IVP .ONCE PRN; Protocol PRN Reason: SBP> or= 160 OR DBP> or= 110 Lactated Ringer's (Lr) 500 mls @ 999 mls/hr IV PRN PRN PRN Reason: NEEDED PER PROVIDER ORDERS Oxytocin/Sodium Chloride (Pitocin/Sodium Chloride) 500 mls @ 999 mls/hr IV PRN PRN; Protocol PRN Reason: POST- HEMORR PREVENTION Tranexamic Acid (Tranexamic 1,000 Mg/100ml-Nacl) 1,000 mg in 100 mls @ 600 mls/hr IV Q30M PRN PRN Reason: EBL >1200mL and within 3hr Lactated Ringer's (Lr) 1,000 mls @ 125 mls/hr IV .Q8H ERIK Oxytocin/Sodium Chloride (Pitocin/Sodium Chloride) 500 mls @ 1 mls/hr IV TITR ERIK; Protocol Labetalol HCl (Labetalol 20 Mg/4 Ml Syringe) 20 - 80 mg IVP Q10M PRN; Protocol PRN Reason: SBP> or= 160 OR DBP> or= 110 Labetalol HCl (Labetalol 20 Mg/4 Ml Syringe) 20 mg IVP .ONCE PRN; Protocol PRN Reason: SBP> or= 160 OR DBP> or= 110 Labetalol HCl (Labetalol 20 Mg/4 Ml Syringe) 20 - 40 mg IVP Q10M PRN; Protocol PRN Reason: SBP> or= 160 OR DBP> or= 110 Lidocaine HCl (Lidocaine 1% 20 Ml Mdv) 20 ml ID .ONCE PRN PRN Reason: PERINEAL REPAIR Stop: 03/10/23 12:30 Methylergonovine Maleate (Methylergonovine 0.2 Mg/Ml Vial) 0.2 mg IM .ONCE PRN PRN Reason: Hemorrhage Misoprostol (Misoprostol 200 Mcg Tablet) 600 mcg BC .ONCE PRN PRN Reason: Hemorrhage Misoprostol (Misoprostol 200 Mcg Tablet) 800 mcg MO .ONCE PRN PRN Reason: Hemorrhage Nifedipine (Nifedipine 10 Mg Capsule) 10 - 20 mg PO Q20M PRN; Protocol PRN Reason: SBP> or= 160 OR DBP> or= 110 Oxytocin (Oxytocin 10 Unit/Ml Vial) 10 unit IM .ONCE PRN PRN Reason: Step One if no IV access. Sodium Chloride (Sodium Chloride Flush 0.9% 10 Ml Syringe) 10 ml IVP PRN PRN PRN Reason: NEEDED PER PROVIDER ORDERS Sodium Chloride (Sodium Chloride Flush 0.9% 10 Ml Syringe) 10 ml IVP Q8H ERIK Terbutaline Sulfate (Terbutaline 1 Mg/Ml Vial) 0.25 mg SUBQ .ONCE PRN PRN Reason: Tachystole Aspirin [[place] Aspirin] 81 mg PO DAILY 12/16/22 Venlafaxine ER [Effexor ER] 75 mg PO DAILY 12/16/22 Allergies/Adverse Reactions: Allergies Allergy/AdvReac Type Severity Reaction Status Date / Time nitrofurantoin Allergy Intermediate Rash Verified 02/13/23 09:24 [From Macrobid] Anes History & Medical History - Anesthetic History Anesthesia Complications: reports: No previous complications Family history of Anesthesia Complications: Denies Family history of Malignant Hyperthermia: Denies - Medical History Cardiovascular: reports: None, Other (gestational HTN) Pulmonary: reports: None Gastrointestinal: reports: None Urinary: reports: Other Neuro: reports: None Musculoskeletal: reports: None Endocrine/Autoimmune: reports: None Blood Disorders: reports: None Skin: reports: None Smoking Status: Never smoker Exam General: Alert, Oriented x3, Cooperative Dental: WNL Mouth Openin Fingerbreadth Neck Mobility: Normal Mallampati classification: III Thyromental Distance: less than 4 cm Respiratory: Lungs clear Cardiovascular: Regular rate Plan Anesthesia Type: Epidural Consent for Procedure(s) Verified and Reviewed: Yes Code Status: Attempt Resuscitation ASA classification: 3-Severe systemic disease Is this case an emergency?: No
[2023-03-07] MEDS: CALCIUM CARBONATE CHEW 500 MG TABLET PO PRN ×2 (15:22→23:09)
[2023-03-07] MEDS ORDERED: LIDOCAINE 2%-EPI 1:100000 20 ML MDV ONE (18:30)
[2023-03-07] MEDS ORDERED: ROPIVACAINE 0.2% 200 MG/100 ML BAG EP ONE (18:30)
[2023-03-07] MEDS ORDERED: diphenhydrAMINE INJ 50 MG/ML VIAL IVP PRN (18:55)
[2023-03-07] MEDS ORDERED: ROPIVACAINE 0.2% 200 MG/100 ML BAG EP PRN (18:55)
[2023-03-07] MEDS ORDERED: ePHEDrine 50 MG/ML VIAL IVP PRN (18:55)
[2023-03-07] MEDS ORDERED: ONDANSETRON 4 MG/2 ML VIAL IVP PRN (18:55)
[2023-03-07] MEDS ORDERED: NALBUPHINE 10 MG/ML AMP IVP PRN (18:55)
[2023-03-07] MEDS ORDERED: NALOXONE 0.4 MG/ML VIAL IVP PRN (18:55)
--- NOTE | 2023-03-07 19:08 | HISTORY & PHYSICAL EXAMINATION ---
Admit History - Visit Reason Visit Reason: Other (labor induction for elevated bp. h/o severe preE with early delivery with her first .) - : 2 Premature: 1 Care: positive: [facility] Risk/History: positive: Pre-eclampsia Complications This : positive: induced HTN, Chronic HTN Smoking Status: Never smoker - Mother's Labs Mother's RH: positive: Negative GBS: positive: Group B Step Negative - Other Maternal History Other Maternal History: first baby induced for preE at 32 weeks. on labetolol now 100 to 200 to 300 mg bid to control bp. labs normal. very swollen. polycystic kidney disease. - HPI Diagnosis/Indication for NST: Gestational Hypertension Current EDU 03/25/23 Gestation 37 Weeks and 3 Days 2 Vital Signs Temperature 209.3 F H 03/07/23 12:58 Heart Rate 83 03/07/23 12:58 Respiratory Rate 18 03/07/23 12:58 Blood Pressure 136/79 H 03/07/23 12:58 Temperature 209.3 F H 03/07/23 12:58 Heart Rate 83 03/07/23 12:58 Respiratory Rate 18 03/07/23 12:58 Blood Pressure 136/79 H 03/07/23 12:58 O2 Saturation If not protocol: Oxygen Flow, liters/minute - NST Procedure NST Procedure Start Time 13:00 Stop Time 13:30 - Results and Plan Findings/Impression: reactive NST. baseline 130 no decels. + acels more than 15x15. Plan: proceed with induction with pitocin. Meds/Allgy - Home Medications Home Medications: Ambulatory Orders Medication Instructions Recorded Confirmed Aspirin [[place] Aspirin] 81 mg PO DAILY 12/16/22 12/16/22 Venlafaxine ER [Effexor ER] 75 mg PO DAILY 12/16/22 12/16/22 - Allergies Allergies/Adverse Reactions: Allergies Allergy/AdvReac Type Severity Reaction Status Date / Time nitrofurantoin Allergy Intermediate Rash Verified 02/13/23 09:24 [From Macrobid] Review of Systems - Constitutional Constitutional: reports: Fatigue - Cardiovascular Cariovascular: reports: Edema (quite significant edema. for weeks now.) - Respiratory Respiratory: denies: SOB at rest - Gastrointestinal Gastrointestinal: reports: Reflux/heartburn. denies: Abdominal pain - Neurological Neurological: reports: Headache (headache all day and last night. better when she took her labetolol. ok now.) Physical - Abdominal Exam Vital Signs: Temp Pulse Resp BP Pulse Ox O2 Flow Rate 209.3 F H 83 18 136/79 H 03/07/23 12:58 03/07/23 12:58 03/07/23 12:58 03/07/23 12:58 Contraction Frequency (min/apart): few. pit at 7. Contraction Intensity: positive: Mild Uterine Resting Tone: positive: Soft - Monitoring Strip Review: positive: Category I - Presentation Presentation: positive: Vertex - Vaginal Exam Membranes: positive: Membranes ruptured (at time of my exam about 1730.) Dilation (in cm): 4.5 Effacement (%): 80 Station: positive: -3 Plan for Labor - Plan For Labor I expect patient to be DC'd or transferred within 96 hours.: Yes Plan for Labor: induction of labor with pitocin and AROM. consents signed in office. does have a mild headache today but bps have been ok. labs normal. epidural for pain management. Anticipate later this evening.
[2023-03-07] MEDS: LABETALOL 100 MG TABLET PO SCH (19:56)
[2023-03-07] MEDS: VENLAFAXINE ER 75 MG CAPSULE PO SCH (19:57)
--- NOTE | 2023-03-07 23:40 | PROVIDER PROGRESS NOTE ---
Labor Progress Note - Uterine Monitoring Uterine Monitoring Mode: positive: External toco Contraction Intensity: positive: Mild to moderate Uterine Resting Tone: positive: Soft - Monitoring Monitor Mode: positive: Spiral electrode Heart Rate Variability: positive: Moderate (6-25 bmp) Accelerations: positive: Present, 15x15 Decelerations: positive: Variable Strip Review: positive: Category I - Vaginal Exam Dilation (in cm): 9 Effacement (%): 100 Station: -1 - Labor Progress Note Labor Progress Note/Additional Text: at 20:45 patient had a large decel. maybe bp lowering after labetolol dose but bp was up to 169/88 before that. down to 130/70. pitocin turned off and baby recovered. I went to do a c section and after checked her and she was 7 cm. pitocin turned back on as she was not jodie much. now feeling some pressure. baby's head much lower. Anticipate soon.
[2023-03-08] MEDS ORDERED: RHO(D) IMMUNE GLOBULIN 300 MCG SYRINGE IVP ONE (00:50)
[2023-03-08] MEDS ORDERED: WITCH HAZEL/GLYCERIN 1 PAD TOP PRN (00:50)
--- NOTE | 2023-03-08 01:06 | DELIVERY NOTE ---
Delivery Note - Labor Labor: positive: Induced by oxytocin - Delivery Method Delivery Method: positive: Spontaneous vaginal delivery - Presentation Presentation: positive: Vertex - Nuchal Cord Nuchal Cord: positive: None - Anesthetic Anesthetic Type: - Amniotic Fluid Description Amniotic Fluid Description: positive: Clear - Episiotomy Type Episiotomy Type: positive: None - Laceration Laceration: positive: 2nd degree - Suture Suture Type: positive: Vicryl Suture Size: positive: 3-0 - Delivery Outcome Delivery Outcome: positive: Livebirth - : positive: Placed in direct skin contact with mother sex: positive: Male - Cord Cord: positive: 3 vessels - Placenta Placenta: positive: Intact, Spontaneous - Estimated Blood Loss Estimated Blood Loss (in cc): 250 - Post Delivery Events Post Delivery Events: positive: No post delivery events - Delivery Comments (Free Text/Narrative) Delivery Comments (Free Text/Narrative): labor induced due to htn, with increasing labetolol needs. some headache but not severe. labs normal. admitted in mid afternoon. hard to get IV in. once in, pitocin started. AROM at 1800. 4.5 cm then. received epidural soon after. at 2044 big decel and pitocin turned off. Baby recovered well. after c section pitocin restarted at 2. progressed well to complete. while pushing had some low heart rate. hard to follow. hard to monitor contractions. had patient push and she did amazing and pushed her baby out. OA. delivered easily. crying right away. on her belly. cord clamped and cut after about 2 min. oxytocin infused. gentle traction put on cord with fundal pressure, as usual. cord start to come off. placenta coaxed out from edge. intact. uterus contracted well. Small second degree laceration repaired with 3-0 Vicryl rapide. Tolerated well. As we were beginning to clean her up, she passed a large amount of looser stool into the bag.
[2023-03-08] MEDS: FUROSEMIDE 40 MG/4 ML VIAL IVP SCH ×2 (07:32→20:42)
[2023-03-08] MEDS: IBUPROFEN 600 MG TABLET PO SCH ×2 (07:32→15:56)
[2023-03-08] MEDS: ACETAMINOPHEN 500 MG TABLET PO SCH ×2 (07:33→15:57)
[2023-03-08] MEDS: LABETALOL 100 MG TABLET PO SCH (08:09)
[2023-03-08] MEDS ORDERED: ENOXAPARIN 40 MG/0.4 ML SYRINGE SUBQ SCH (12:00)
[2023-03-08 12:23] LABS: ALBUMIN 3.2 g/dL (3.2-5.5)
[2023-03-08 12:25] LABS: ALBUMIN/GLOBULIN RATIO 1.1 (1.0-2.2); BILIRUBIN,TOTAL 0.4 mg/dL (0.2-1.0); CALCIUM 8.8 mg/dL (8.5-10.3); CREATININE 0.7 mg/dL (0.6-1.3); POTASSIUM 4.2 mmol/L (3.5-4.5); TOTAL PROTEIN 6.2 g/dL (6.4-8.9)
[2023-03-08 12:48] LABS: BASOPHILS % (AUTO) 0.3 %; EOSINOPHILS # (AUTO) 0.1 10^3/uL (0.0-0.7); EOSINOPHILS % (AUTO) 0.8 %; HCT - HEMATOCRIT 31.7 % (37.0-47.0); HGB - HEMOGLOBIN 10.2 g/dL (12.0-16.0); LYMPHOCYTES # (AUTO) 2.1 10^3/uL (1.5-3.5); LYMPHOCYTES % (AUTO) 19.7 %; MEAN CORPUSCULAR HEMOGLOBIN 28.9 pg (27.0-31.0); MEAN CORPUSCULAR HGB CONC 32.2 g/dL (32.0-36.0); MEAN CORPUSCULAR VOLUME 89.8 fL (81.0-99.0); MEAN PLATELET VOLUME 11.2 fL (7.9-10.8); MONOCYTES # (AUTO) 0.4 10^3/uL (0.0-1.0); MONOCYTES % (AUTO) 3.5 %; NEUTROPHILS % (AUTO) 75.3 %; PLT - PLATELET COUNT 199 10^3/uL (130-450); RED BLOOD COUNT 3.53 10^6/uL (4.20-5.40); RED CELL DISTRIBUTION WIDTH 14.7 % (12.0-15.0); WHITE BLOOD COUNT 10.7 x10^3/uL (4.8-10.8)
[2023-03-08] MEDS: NIFEdipine 10 MG CAPSULE PO PRN ×2 (16:56→22:00)
[2023-03-08] MEDS: SIMETHICONE CHEW 80 MG TABLET PO SCH (17:16)
[2023-03-08] MEDS: VENLAFAXINE ER 75 MG CAPSULE PO SCH (20:42)
[2023-03-08] MEDS: SODIUM CHLORIDE FLUSH 0.9% 10 ML SYRINGE IVP SCH ×2 (20:46→20:47)
[2023-03-09] MEDS: LABETALOL 100 MG TABLET PO SCH ×3 (00:55→18:22)
[2023-03-09] MEDS: ACETAMINOPHEN 500 MG TABLET PO SCH ×4 (00:58→18:18)
[2023-03-09] MEDS: IBUPROFEN 600 MG TABLET PO SCH ×4 (00:59→08:08)
[2023-03-09] MEDS: LACTATED RINGERS 1,000 ML IV SCH ×6 (01:48→01:50)
[2023-03-09] MEDS: SODIUM CHLORIDE FLUSH 0.9% 10 ML SYRINGE IVP SCH ×2 (01:49→01:50)
[2023-03-09] MEDS: OXYTOCIN/SODIUM CHLORIDE 500 ML IV SCH (01:49)
[2023-03-09] MEDS: SIMETHICONE CHEW 80 MG TABLET PO SCH (01:50)
[2023-03-09] MEDS: NIFEdipine 10 MG CAPSULE PO PRN (05:14)
--- NOTE | 2023-03-09 10:48 | PROVIDER PROGRESS NOTE ---
Subjective - Prog Note Date Prog Note Date: 03/09/23 Prog Note Time: 10:47 - Subjective Pt reports feeling: Improved Subjective: Patient is day 1 status postnormal spontaneous vaginal delivery complicated by gestational hypertension and maternal polycystic kidney disease. Patient is doing well this morning. She denies headache, changes in vision, right upper quadrant pain. Lochia is less than menses.Patient is ambulating, spontaneously voiding. Objective - Vital Signs/Intake & Output Reviewed Vital Signs: Yes Vital Signs: Vital Signs x48h Temp Pulse Resp BP BP Pulse Ox 03/09/23 09:11 98.4 F 83 16 127/71 100 03/09/23 07:09 78 18 118/74 03/09/23 05:07 78 16 146/79 H Intake & Output: Intake & Output 03/06/23 03/07/23 03/08/23 03/09/23 23:59 23:59 23:59 23:59 Intake Total 1394.000 741 480 Output Total 3350 750 Balance 1394.000 -2609 -270 - Objective General Appearance: positive: No acute distress Respiratory: positive: Breath sounds nml Cardiovascular: positive: Regular rate & rhythm Abdomen: positive: Non-tender (Firm fundus below the umbilicus) Skin: positive: Color nml Extremities: positive: Non-tender, Pedal edema (trace) - Lab Results Fish Bones: 03/08/23 12:40 03/08/23 12:01 Other Labs: Lab Results x24hrs 03/08/23 03/08/23 03/08/23 Range/Units 12:40 12:01 12:01 WBC 10.7 (4.8-10.8) x10^3/uL RBC 3.53 L (4.20-5.40) 10^6/uL Hgb 10.2 L (12.0-16.0) g/dL Hct 31.7 L (37.0-47.0) % MCV 89.8 (81.0-99.0) fL MCH 28.9 (27.0-31.0) pg MCHC 32.2 (32.0-36.0) g/dL RDW 14.7 (12.0-15.0) % Plt Count 199 (130-450) 10^3/uL MPV 11.2 H (7.9-10.8) fL Neut # (Auto) 8.0 H (1.5-6.6) 10^3/uL Lymph # (Auto) 2.1 (1.5-3.5) 10^3/uL [place] # (Auto) 0.4 (0.0-1.0) 10^3/uL Eos # (Auto) 0.1 (0.0-0.7) 10^3/uL Baso # (Auto) 0.0 (0.0-0.1) 10^3/uL Absolute Nucleated RBC 0.00 x10^3/uL Nucleated RBC % 0.0 /100WBC Sodium 136 (135-145) mmol/L Potassium 4.2 (3.5-4.5) mmol/L Chloride 105 (101-111) mmol/L Carbon Dioxide 24 (21-32) mmol/L Anion Gap 7.0 (6-13) BUN 11 (6-20) mg/dL Creatinine 0.7 (0.6-1.3) mg/dL Estimated GFR (MDRD) 97 (>89) Glucose 75 (74-104) mg/dL Calcium 8.8 (8.5-10.3) mg/dL Total Bilirubin 0.4 (0.2-1.0) mg/dL AST 20 (10-42) IU/L ALT 8 L (10-60) IU/L Alkaline Phosphatase 91 (42-121) IU/L Total Protein 6.2 L (6.4-8.9) g/dL Albumin 3.2 (3.2-5.5) g/dL Globulin 3.0 (2.1-4.2) g/dL Albumin/Globulin Ratio 1.1 (1.0-2.2) Blood Type B NEGATIVE Weak D (Du) WEAK-D NEGATIVE Maternal Bleed NEGATIVE (NEGATIVE) Assessment/Plan - Problem List (1) with 37 weeks completed gestation Impression: 1. Gestational hypertension: Continue labetalol 200 mg p.o. twice daily. Patient received immediate release nifedipine overnight for occasional blood pressure greater than 140/90. At this time blood pressure is within normal limits and on the lower end. We will monitor blood pressures today to decide adjusting blood pressure medications. She has no signs or symptoms of preeclampsia. I reviewed signs and symptoms of preeclampsia for when patient goes home. 2. Rh negative: status post rhogam 3. healthy at beside I reviewed signs and symptoms of depression.
[2023-03-09] MEDS ORDERED: LABETALOL 100 MG TABLET PO ONE (16:00)
--- NOTE | 2023-03-09 16:04 | PROVIDER PROGRESS NOTE ---
Subjective - Prog Note Date Prog Note Date: 03/09/23 Objective - Vital Signs/Intake & Output Vital Signs: Vital Signs x48h Temp Pulse Resp BP BP Pulse Ox 03/09/23 15:12 144/74 H 03/09/23 14:29 132/72 H 03/09/23 12:56 98.2 F 79 16 128/65 100 03/09/23 11:30 138/78 H 03/09/23 09:11 98.4 F 83 16 127/71 100 Intake & Output: Intake & Output 03/06/23 03/07/23 03/08/23 03/09/23 23:59 23:59 23:59 23:59 Intake Total 1394.000 741 480 Output Total 3350 750 Balance 1394.000 -2609 -270 - Lab Results Fish Bones: 03/08/23 12:40 03/08/23 12:01 Assessment/Plan - Problem List (1) with 37 weeks completed gestation Impression: Patient with elevated blood pressure this afternoon. Discussed plan of care with patient will increase labetalol from 200 mg p.o. twice daily to 300 mg p.o. twice daily and will monitor overnight. Discussed increased risk of recurrent preeclampsia given patient had preeclampsia with severe features and delivery at 32 weeks with her first . I again reviewed signs and symptoms of preeclampsia. She will have close follow-up in the office. Patient states that she was not on any antihypertensive medications with previous or .
[2023-03-09] MEDS ORDERED: LABETALOL 100 MG TABLET PO SCH ×2 (19:00→21:00)
[2023-03-09] MEDS ORDERED: NIFEdipine ER 30 MG TABLET PO SCH (21:00)
[2023-03-09] MEDS ORDERED: VENLAFAXINE ER 75 MG CAPSULE PO SCH (21:00)
[2023-03-10] MEDS: ACETAMINOPHEN 500 MG TABLET PO SCH (02:31)
[2023-03-10] MEDS: LABETALOL 100 MG TABLET PO SCH (05:48)
[2023-03-10] MEDS: SIMETHICONE CHEW 80 MG TABLET PO SCH (05:50)
[2023-03-10 08:59] VITALS: O2SAT 100
[2023-03-10] MEDS ORDERED: NIFEdipine ER 30 MG TABLET PO ONE (09:00)
[2023-03-10] MEDS ORDERED: NIFEdipine ER 30 MG TABLET PO SCH (09:00)
[2023-03-10 10:18] VITALS: BP 138/73
--- NOTE | 2023-03-10 10:28 | PROVIDER PROGRESS NOTE ---
Subjective - Prog Note Date Prog Note Date: 03/10/23 - Subjective Pt reports feeling: Improved Subjective: Patient is doing well this morning. She is ambulating, tolerating regular diet, spontaneously voiding. Lochia is less than menses. She denies headache, changes in vision, right upper quadrant pain. Objective - Vital Signs/Intake & Output Reviewed Vital Signs: Yes Vital Signs: Vital Signs x48h Temp Pulse Pulse Resp BP Pulse Ox 03/10/23 10:00 97.9 F 84 16 138/73 H 100 03/10/23 08:57 97.7 F 84 16 143/81 H 100 03/10/23 05:15 208.9 F H 78 16 142/78 H 03/10/23 03:00 98.2 F 73 16 139/73 H Intake & Output: Intake & Output 03/07/23 03/08/23 03/09/23 03/10/23 23:59 23:59 23:59 23:59 Intake Total 1394.991 083 4180 Output Total 3350 750 Balance 1394.000 -2609 330 - Objective General Appearance: positive: No acute distress Respiratory: positive: Breath sounds nml Cardiovascular: positive: Regular rate & rhythm Abdomen: positive: Non-tender (Firm fundus below the umbilicus) Extremities: positive: Pedal edema (Trace) - Lab Results Fish Bones: 03/08/23 12:40 03/08/23 12:01 Assessment/Plan - Problem List (2) Gestational hypertension Impression: Patient is currently on 300 mg of p.o. labetalol twice daily and 30 mg of Procardia XL twice daily. She is asymptomatic. Patient is requesting to go [facility] today. She was counseled extensively on signs and symptoms of preeclampsia. She will have close follow-up in the office and was given specific blood pressure parameters to call or present for. Qualifiers: Trimester: third trimester Qualified Code(s): O13.3 - Gestational [-induced] hypertension without significant proteinuria, third trimester
--- NOTE | 2023-03-10 10:32 | Discharge Plan ---
Discharge Plan Problem Reviewed?: Yes Disposition: Home, Self Care Condition: Good Prescriptions: NIFEdipine [Nifedipine ER] 30 mg PO BID #60 tab Labetalol [Trandate] 300 mg PO 0600,1800 #60 tab Diet: Regular Activity Restrictions: No Restrictions No Smoking: If you smoke, Please STOP! Call for help.
--- NOTE | 2023-03-10 10:39 | DISCHARGE SUMMARY ---
Discharge Summary Discharge Date: 03/10/23 Discharging Provider: Nazario Condition at Discharge: Good Discharge Disposition: 01 Home, Self Care - DIAGNOSES Admission Diagnoses: 1. gestational hypertension 2. polycystic kidney disease - HOSPITAL COURSE Hospital Course: Patient is a -1-0-1 who presented for induction of labor secondary to gestational hypertension. Patient had a history of previous eclampsia with a previous . She was on labetalol 100 mg which was increased to 200 mg and further increase to 300 mg twice daily she was also added Procardia 30 mg XL twice daily . was also complicated by polycystic kidney disease. Patient was induced by oxytocin. She had an uncomplicated vaginal delivery and uncomplicated course. Patient was discharged home on labetalol 300 mg p.o. twice daily and Procardia 30 mg XL twice daily. She was given strict precautions for preeclampsia. Patient has a home blood pressure monitor and was advised to call for recurrent blood pressures greater than 140/90. She was advised to come in for blood pressures greater than 160/110. Patient was counseled to call or come in for headache, changes in vision, right upper quadrant pain, increased lower extremity edema, or any other concerns - ALLERGIES Allergies/Adverse Reactions: Allergies Allergy/AdvReac Type Severity Reaction Status Date / Time nitrofurantoin Allergy Intermediate Rash Verified 02/13/23 09:24 [From Macrobid] - MEDICATIONS Home Medications: Ambulatory Orders Medication Instructions Recorded Confirmed Venlafaxine ER [Effexor ER] 75 mg PO DAILY 12/16/22 12/16/22 Labetalol [Trandate] 300 mg PO 0600,1800 #60 tab 03/10/23 NIFEdipine [Nifedipine ER] 30 mg PO BID #60 tab 03/10/23 - PHYSICAL EXAM AT DISCHARGE General Appearance: positive: No acute distress Respiratory: positive: No respiratory distress Cardiovascular: positive: Regular rate & rhythm Abdomen: positive: Non-tender (Firm fundus below the umbilicus) Extremities: positive: Non-tender, Pedal edema - LABS Result Diagrams: 03/08/23 12:40 03/08/23 12:01
--- NOTE | 2023-03-10 12:57 | Labor Flowsheet ---
Labor Flowsheet Datetime Report Generated by CPN: 03/10/2023 12:56 Datetime: 03/10/2023 10:11 VITAL SIGNS NBP Sys/Robyn/Mean (mmHg): 138 : 73 : 86 Pulse: 78 Datetime: 03/08/2023 02:15 PAIN Pain Scale: 0 Datetime: 03/08/2023 01:46 Respirations: 16 Pain Presence: Chronic Datetime: 03/08/2023 01:00 Epidural Procedure: Completed Epidural Procedure Other: Cath Removed; Cath Intact Datetime: 03/08/2023 00:30 Temperature (C): 37.0 Temperature Route: Oral Datetime: 03/08/2023 00:18 Stage of : Recovery Datetime: 03/08/2023 00:16 LaborFlag: Labor Datetime: 03/08/2023 00:10 FHR Baseline Rate : 115 Variability: Moderate 6-25 bpm Decelerations: Variable Datetime: 03/08/2023 00:05 Frequency (min): 2--3 Quality: Strong Duration (sec): 60 Accelerations: 15X15 Datetime: 03/07/2023 23:55 UTERINE ACTIVITY Monitor Mode: External Pattern: Normal: <= 5 Contractions in 10 Minutes Resting Tone (Palpate): Relaxed ASSESSMENT A Monitor Mode: Internal Scalp Electrode Actions for Decelerations: Provider Notified Comments: dr at bs Datetime: 03/07/2023 23:54 SpO2 (%): 100 Datetime: 03/07/2023 23:53 VAGINAL EXAM Dilatation (cm): 10.0 Effacement (%): 100 Station: 1 Datetime: 03/07/2023 23:48 FHR Baseline Changes: No Baseline Change Datetime: 03/07/2023 23:38 Monitor Interventions for UA: [place] Adjusted Monitor Interventions for FHR: Ultrasound Adjusted Datetime: 03/07/2023 23:30 Provider Reviewed Strip: Yes Anesthesia Level Check: T10- Umbilicus COMMUNICATION Communication: RN at Bedside; RN Reviewed Strip; Provider at Bedside Datetime: 03/07/2023 23:27 Exam by: DR Finn Vaginal Bleeding: None Cervix, Consistency: Soft Cervix, Position: Anterior Datetime: 03/07/2023 22:59 Communication Comments: vomiting Datetime: 03/07/2023 22:32 Amniotic Fluid Color: Clear Amniotic Fluid Amount: Scant Amniotic Fluid Odor: Normal PATIENT CARE Patient Position/Activity: Right Lateral Datetime: 03/07/2023 21:01 TEACHING Plan of Care: Plan of Care Discussed Labor/Induction: Interventions Datetime: 03/07/2023 20:59 Strip Reviewed by: DR Finn Datetime: 03/07/2023 20:51 I/O Interventions: [place] Cath Inserted Datetime: 03/07/2023 20:44 Patient Care Comments: Dr Finn at BS Datetime: 03/07/2023 20:15 Pitocin Checklist: At Least 1 Acceleration of 15 bpm x 15 Seconds in 30 Minutes or Adequate Variabi lity Datetime: 03/07/2023 19:59 MATERNAL ASSESSMENT Level of Consciousness: Alert DTR's/Clonus: DTRs 2+ Headache: Denies Nausea/Vomiting: Denies RUQ Epigastric Pain: Denies Datetime: 03/07/2023 19:00 Category: Category I Datetime: 03/07/2023 18:45 MEDICATIONS Pitocin (milliunits): Increased to @ 8 Datetime: 03/07/2023 18:29 Anesthesia Comments: local given Datetime: 03/07/2023 18:22 Epidural Positioning: Sitting Datetime: 03/07/2023 18:00 Contraction Comments: pt feels them as cramps Datetime: 03/07/2023 17:56 Membrane Status: Ruptured Membranes Rupture Method: Artificial Datetime: 03/07/2023 17:41 ANESTHESIA Anesthesia Plans: Epidural Datetime: 02/13/2023 08:18 Membranes Ruptured Date/Time: 03/07/2023 17:56
== END 2023-03-10 12:55 | disposition home or self-care (01) | DRG 807 ==
LOC: WFO 12:16 → FBP 12:18 → WFO 12:29 → FBP 12:30
PROVIDERS: ADMIT Obstetrics & Gynecology; ATTEND Obstetrics & Gynecology Obstetrics
PROC: 10907ZC Drainage of Amniotic Fluid, Therapeutic from Products of Conception, Via Natural or Artificial Opening (ICD-10-PCS; principal; 2023-03-07)
PROC: 3E033VJ Introduction of Other Hormone into Peripheral Vein, Percutaneous Approach (ICD-10-PCS; 2023-03-07)
PROC: 10E0XZZ Delivery of Products of Conception, External Approach (ICD-10-PCS; 2023-03-08)
PROC: 0KQM0ZZ Repair Perineum Muscle, Open Approach (ICD-10-PCS; 2023-03-08)
DX: O13.4 Gestational [pregnancy-induced] hypertension without significant proteinuria, complicating childbirth (principal); Z37.0 Single live birth; O99.892 Other specified diseases and conditions complicating childbirth; O70.1 Second degree perineal laceration during delivery; Z3A.37 37 weeks gestation of pregnancy; N28.1 Cyst of kidney, acquired; O76 Abnormality in fetal heart rate and rhythm complicating labor and delivery
CPT/HCPCS: 36415; 59409; 80053; 82570; 83033; 84156; 85025; 86850; 86870; 86900; 86901; A9270; J1650; J7120

== ENCOUNTER 2024-01-11 12:57 | Outpatient (CLI) | payer OTHER ==
--- NOTE | 2024-01-11 15:54 | XRAY Report ---
PROCEDURE: Chest 2V INDICATIONS: PAIN OF STERNUM TECHNIQUE: 2 views of the chest were acquired. COMPARISON: None. FINDINGS: Surgical changes and devices: None. Lungs and pleura: No pleural effusions or pneumothorax. Lung volumes are low, but lungs are clear. Mediastinum: Mediastinal contours appear normal. Heart size is normal. Bones and chest wall: No suspicious bony lesions. No acute fracture. Specifically, visualized porti on of the sternum appears intact. Overlying soft tissues appear unremarkable. IMPRESSION: 1.No acute cardiopulmonary process. 2.No acute fracture. Specifically, visualized portion of the sternum appears intact. If there is high clinical suspicion for a radiographically occult fracture, recommend cross-sectional imaging for fur ther evaluation. Reviewed by: Harjinder Miranda MD on 01/11/2024 3:53 PM PDT Approved by: Harjinder Miranda MD on 01/11/2024 3:53 PM PDT Station ID: [id number]
--- NOTE | 2024-01-11 16:08 | XRAY Report ---
PROCEDURE: Shoulder 2+V RT INDICATIONS: PAIN IN RIGHT SHOULDER TECHNIQUE: 3 views of the shoulder were acquired. COMPARISON: None. FINDINGS: Bones: No fractures or dislocations. No suspicious bony lesions. Acromioclavicular and coracoclavi cular intervals are maintained. Visualized ribs appear intact. Soft tissues: No suspicious soft tissue calcifications. The visualized lungs are within normal limi ts. IMPRESSION: No acute bony abnormality. If pain persists with conservative management, consider repeat radiographs in 10-14 days or cross-sectional imaging. Reviewed by: Harjinder Miranda MD on 01/11/2024 4:07 PM PDT Approved by: Harjinder Miranda MD on 01/11/2024 4:07 PM PDT Station ID: [id number]
== END 2024-01-11 12:58 | disposition home or self-care (01) ==
LOC: DI 12:57
PROVIDERS: ATTEND Physician Assistant
DX: R07.2 Precordial pain (principal); M25.511 Pain in right shoulder

== ENCOUNTER 2024-06-24 12:06 | Observation (INO) ==
--- NOTE | 2024-06-24 14:03 | ED Physician Documentation ---
History of Present Illness Stated complaint Stated Complaint: URQ PX/N/V Chief complaint Chief Complaint: Abd Pain History obtained from History obtained from: Patient Additonal information Additional information: She has known gallstones. She has been having intermittent attacks for the last year and a half but they have really accelerated lately, she has had constant right upper quadrant pain with nausea and vomiting and cannot keep anything down for the last 48 hours. Denies fevers. She has a history of polycystic kidney disease, but no history of renal dysfunction. She has had 1 kidney stone in the past. Meds/Allgy Home Medications Ambulatory Orders Medication Instructions Recorded Confirmed venlafaxine 75 mg capsule,extended 150 mg PO DAILY 12/16/22 05/08/23 release 24 hr vit no.95-ferrous 1 ea PO DAILY 05/08/23 05/08/23 fumarate 28 mg-folic acid 800 mcg tablet () tamsulosin 0.4 mg capsule (Flomax) 0.4 mg PO DAILY #14 caps 02/09/24 Allergies Allergies Allergy/AdvReac Type Severity Reaction Status Date / Time nitrofurantoin (From Allergy Intermediate Rash Verified 06/24/24 12:18 Macrobid) PFSH Active Problems All Active Problems (Updated 06/24/24 @ 16:43 by Skyler Gooden MD) Choledocholithiasis (Acute) Biliary colic (Acute) Autosomal dominant polycystic kidney disease (Acute) Nausea (Acute) Gestational hypertension (Acute) Adult BMI 45.0-49.9 kg/sq m (Acute) Edema during in third trimester (Acute) Hypertension affecting in third trimester (Acute) with 37 weeks completed gestation (Acute) Social History Social History Smoking Status: Never smoker Do you vape?: No Do you feel safe in your home environment?: Yes Suffered physical, verbal, emotional, or financial abuse?: No Are you sexually active?: Yes Exam Constitutional normal general appearance and no apparent distress Gastrointestinal Tenderness in the right upper quadrant without surgical signs, no diffuse tender ness. Soft belly. Results Vitals Vitals: Vital Signs - 24 hr 06/24/24 12:16 06/24/24 15:47 Temperature 36.5 C Temperature Source Temporal Artery Scan Pulse Rate 76 61 Respiratory Rate 18 Blood Pressure 155/97 H 149/94 H O2 Saturation 100 100 O2 Source Room air Room air Pain Intensity 7 4 Oxygen O2 Source Room air Labs Labs: Laboratory Tests 06/24/24 06/24/24 14:22 15:47 WBC 11.3 H RBC 5.11 Hgb 14.0 Hct 44.5 MCV 87.1 MCH 27.4 MCHC 31.5 L RDW 13.4 Plt Count 253 MPV 11.4 H Neut # (Auto) 8.4 H Lymph # (Auto) 2.3 [place] # (Auto) 0.4 Eos # (Auto) 0.2 Baso # (Auto) 0.0 Absolute Nucleated RBC 0.00 Nucleated RBC % 0.0 Sodium 138 Potassium 4.0 Chloride 105 Carbon Dioxide 28 Anion Gap 5.0 L BUN 11 Creatinine 0.8 Estimated GFR (MDRD) 82 L Glucose 103 Calcium 9.6 Total Bilirubin 0.5 AST 14 ALT 12 Alkaline Phosphatase 87 Total Protein 8.1 Albumin 4.7 Globulin 3.4 Albumin/Globulin Ratio 1.4 Lipase 83 H Urine Color YELLOW Urine Clarity CLEAR Urine pH 8.0 H Ur Specific [place] 1.020 Urine Protein NEGATIVE Urine Glucose (UA) NEGATIVE Urine Ketones NEGATIVE Urine Occult Blood NEGATIVE Urine Nitrite NEGATIVE Urine Bilirubin NEGATIVE Urine Urobilinogen 0.2 (NORMAL) Ur Leukocyte Esterase NEGATIVE Ur Microscopic Review NOT INDICATED Urine Culture Comments NOT INDICATED Urine HCG, Qual NEGATIVE PD Medical Decision Making ED course ED course: 34-year-old woman with known gallstones and polycystic kidney disease presents with 2 days of constant pain that is likely biliary in origin given her description and location and her past medical history. Initially she really did not want any pain medicine but was amenable to Zofran and IV fluids. Given her personal and family history of polycystic kidney disease and her mother needing dialysis at a relatively young age did not want to do Toradol. Subsequent workup demonstrates mild leukocytosis, normal liver enzymes and a mildly elevation in her lipase. Repeat ultrasonography. The RDMS shows thickened gallbladder wall but no pericholecystic fluid. She has moderate elevation of her CBD with a small CBD stone visible on ultrasound. It is odd that she does not have any elevation of her alkaline phosphatase or other liver enzymes. Case discussed by phone with Dr. Oneal who will see the patient at the bedside and patient did become agreeable to a small dose of hydromorphone. Discharge Plan Discharge Patient Disposition: ED Transfer to [facility] Condition: Stable Clinical Impression: Biliary colic, Choledocholithiasis Prescriptions: No Action venlafaxine 75 MG capsule,extended release 24hr 150 mg PO DAILY Patient Comments: take 1 capsule by mouth once daily PNV [id number]-ferrous fumarate-FA [] 1 EACH tablet 1 ea PO DAILY tamsulosin [Flomax] 0.4 mg capsule 0.4 mg PO DAILY Qty: 14 0RF Print Language: Lithuanian Stand Alone Forms: PCP List
[2024-06-24 14:28] LABS: BASOPHILS % (AUTO) 0.3 %; EOSINOPHILS # (AUTO) 0.2 10^3/uL (0.0-0.7); EOSINOPHILS % (AUTO) 1.3 %; HCT - HEMATOCRIT 44.5 % (37.0-47.0); LYMPHOCYTES # (AUTO) 2.3 10^3/uL (1.5-3.5); LYMPHOCYTES % (AUTO) 20.1 %; MEAN CORPUSCULAR HEMOGLOBIN 27.4 pg (27.0-31.0); MEAN CORPUSCULAR HGB CONC 31.5 g/dL (32.0-36.0); MEAN CORPUSCULAR VOLUME 87.1 fL (81.0-99.0); MEAN PLATELET VOLUME 11.4 fL (7.9-10.8); MONOCYTES # (AUTO) 0.4 10^3/uL (0.0-1.0); MONOCYTES % (AUTO) 3.5 %; NEUTROPHILS # (AUTO) 8.4 10^3/uL (1.5-6.6); NEUTROPHILS % (AUTO) 74.5 %; PLT - PLATELET COUNT 253 10^3/uL (130-450); RED BLOOD COUNT 5.11 10^6/uL (4.20-5.40); RED CELL DISTRIBUTION WIDTH 13.4 % (12.0-15.0); WHITE BLOOD COUNT 11.3 x10^3/uL (4.8-10.8)
[2024-06-24] MEDS: ONDANSETRON 4 MG/2 ML VIAL IVP STA (14:28)
[2024-06-24] MEDS: SODIUM CHLORIDE 0.9% 1,000 ML IV STA (14:29)
[2024-06-24 14:42] LABS: ALBUMIN 4.7 g/dL (3.2-5.5); ALBUMIN/GLOBULIN RATIO 1.4 (1.0-2.2); BILIRUBIN,TOTAL 0.5 mg/dL (0.2-1.0); CALCIUM 9.6 mg/dL (8.5-10.3); CREATININE 0.8 mg/dL (0.6-1.3); TOTAL PROTEIN 8.1 g/dL (6.4-8.9)
[2024-06-24 15:56] LABS: BILIRUBIN,URINE NEGATIVE (NEGATIVE); GLUCOSE, URINE (UA) NEGATIVE (NEGATIVE); KETONES,URINE (UA) NEGATIVE (NEGATIVE); LEUKOCYTE ESTERASE, URINE NEGATIVE (NEGATIVE); NITRITE,URINE NEGATIVE (NEGATIVE); OCCULT BLOOD,URINE NEGATIVE (NEGATIVE); PROTEIN,URINE NEGATIVE (NEGATIVE); UROBILINOGEN,URINE 0.2 (NORMAL) E.U./dL (NORMAL)
[2024-06-24 16:01] LABS: CLARITY,URINE CLEAR (CLEAR); HCG UR QUAL NEGATIVE
--- NOTE | 2024-06-24 16:47 | Ultrasound Report ---
PROCEDURE: US Abdomen Limited INDICATIONS: RUQ pain, ?cholecystitis TECHNIQUE: Real-time focused scanning was performed of the abdomen, with image documentation. COMPARISONS: None. FINDINGS: Liver: Numerous cysts. Mildly echogenic parenchyma. Liver measures 16 cm. Gallbladder: Numerous stones. No sonographic White's sign. Borderline thickened wall at 3 to 4 mm. Biliary ducts: Mild dilation of the CBD at 9 mm with a suspected CBD stone measuring 6 mm. Pancreas: Visualized portions of the pancreas are sonographically normal. Right kidney: Right kidney measures 13 cm. Numerous cysts. IVC: Intrahepatic inferior vena cava is patent. Miscellaneous: No free abdominal fluid. IMPRESSION: Cholelithiasis with borderline thickened wall at 3 to 4 mm. No sonographic White's sign. Distended CBD with a probable intraluminal stone. Numerous hepatic and renal cysts again seen Reviewed by: Otis Renteria MD on 06/24/2024 4:46 PM PST Approved by: Otis Renteria MD on 06/24/2024 4:46 PM PST Station ID: [id number]
[2024-06-24] MEDS: HYDROmorphone 0.5 MG/0.5 ML SYRINGE IVP STA (17:03)
--- NOTE | 2024-06-24 17:36 | ANESTHESIA PROCEDURE NOTE ---
Pre-Anesthesia VS, & Labs Diagnosis Surgical Diagnosis:: cholelitiasis, possible cholecystitis Procedure Procedure: laparoscopic cholecystectomy Vitals Vital Signs: Temp Pulse Resp BP Pulse Ox 36.9 C 76 18 170/114 H 100 06/24/24 17:00 06/24/24 17:00 06/24/24 17:00 06/24/24 17:00 06/24/24 17:00 Is Patient ?: No Lab Results Current Lab Results: Laboratory Tests 06/24/24 14:22: WBC 11.3 H, RBC 5.11, Hgb 14.0, Hct 44.5, MCV 87.1, MCH 27.4, M CHC 31.5 L, RDW 13.4, Plt Count 253, MPV 11.4 H, Neut # (Auto) 8.4 H, Lymph # (Auto) 2.3, [place] # (Auto) 0.4, Eos # (Auto) 0.2, Baso # (Auto) 0.0, Absolute Nucleated RBC 0.00, Nucleated RBC % 0.0, Sodium 138, Potassium 4.0, Chloride 105, Carbon Dioxide 28, Anion Gap 5.0 L, BUN 11, Creatinine 0.8, Estimated GFR (MDRD) 82 L, Glucose 103, Calcium 9.6, Total Bilirubin 0.5, AST 14, ALT 12, Alkaline Phosphatase 87, Total Protein 8.1, Albumin 4.7, Globulin 3.4, Albumin/Globulin Ratio 1.4, Lipase 83 H Lab results reviewed: Yes 06/24/24 14:22 06/24/24 14:22 Meds/Allgy Home Medications Ambulatory Orders Medication Instructions Recorded Confirmed venlafaxine 75 mg capsule,extended 150 mg PO DAILY 12/16/22 05/08/23 release 24 hr vit no.95-ferrous 1 ea PO DAILY 05/08/23 05/08/23 fumarate 28 mg-folic acid 800 mcg tablet () tamsulosin 0.4 mg capsule (Flomax) 0.4 mg PO DAILY #14 caps 02/09/24 Allergies Allergies Allergy/AdvReac Type Severity Reaction Status Date / Time nitrofurantoin (From Allergy Intermediate Rash Verified 06/24/24 12:18 Macrobid) PFSH Active Problems All Active Problems (Updated 06/24/24 @ 17:56 by Magalie Oneal MD) Choledocholithiasis (Acute) Biliary colic (Acute) Autosomal dominant polycystic kidney disease (Chronic) Nausea (Acute) Gestational hypertension (Acute) Adult BMI 45.0-49.9 kg/sq m (Acute) Edema during in third trimester (Acute) Hypertension affecting in third trimester (Acute) with 37 weeks completed gestation (Acute) Surgical History Surgical History (Updated 06/24/24 @ 17:56 by Magalie Oneal MD) H/O lithotripsy Family History Family History (Updated 06/24/24 @ 17:56 by Magalie Oneal MD) Mother Polycystic kidney disease Social History Social History Smoking Status: Never smoker Do you vape?: No Living arrangement: At home Marital Status: Living Condition: With family Level: Independent Do you feel safe in your home environment?: Yes Suffered physical, verbal, emotional, or financial abuse?: No Frequency: Occasional Substance Use: cannabis (any form) Are you sexually active?: Yes 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: No Are you following a special diet: Yes Special Diet Details: low fat for gallstones Anesthesia Exam (Expanded) Exam General: Alert, Oriented x3 and Cooperative Dental: WNL Mouth Opening: Greater than 4 Fingerbreadths Neck Mobility: Normal Mallampati classification: II Thyromental Distance: 4-6 cm Respiratory: Lungs clear and Normal breath sounds Cardiovascular: Regular rate Neurological: Normal speech Mental/Cognitive Status: Alert/Oriented X3 and Normal for patient Cognitive Status: Within normal limits Plan Plan Anesthesia Type: General Consent for Procedure(s) Verified and Reviewed: Yes Code Status: Attempt Resuscitation ASA Classification ASA classification: 2-Mild systemic disease Is this case an emergency?: Yes
--- NOTE | 2024-06-24 17:54 | PREOP HISTORY & PHYSICAL ---
Surgical History & Physical Chief Complaint/HPI Chief Complaint: "I feel terrible." History of Present Illness: This is a 34-year-old female who has been having intermittent biliary symptoms since November 2022 when she was diagnosed with gallstones. At the time of her diagnosis, she was . She delivered her son in February 2023. She cut down on the fat in her diet as much as possible. Over the last year, she has noticed increasing symptoms, despite changes to her diet. For the last 3 days, the patient has had persistent achy right upper quadrant pain with sharp exacerbations when she tries to eat or drink and with activities like bending over. She has not been able to keep any significant food or liquids down since Sunday morning. She has had multiple episodes of bilious and nonbilious vomiting. She has felt cold quite a bit over the last couple of days but denies any fevers. The patient also has a history notable for polycystic kidney disease. All Active Problems (Updated 06/24/24 @ 16:43 by Skyler Gooden MD) Choledocholithiasis (Acute) Biliary colic (Acute) Autosomal dominant polycystic kidney disease (Acute) Nausea (Acute) Gestational hypertension (Acute) Adult BMI 45.0-49.9 kg/sq m (Acute) Edema during in third trimester (Acute) Hypertension affecting in third trimester (Acute) with 37 weeks completed gestation (Acute) Note: patient is no longer , so above related problems are resolved. Home Meds and Allergies Active Medications Generic Name Dose Route Start Last Admin Trade Name Freq PRN Reason Stop Dose Admin Sodium Chloride 1,000 mls @ 125 mls/hr 06/24/24 18:08 Normal Saline 0.9% IV .Q8H ERIK Metronidazole 500 mg in 100 mls @ 100 mls/hr 06/24/24 18:08 Flagyl 500 Mg/100 Ml IV 06/24/24 19:07 ONCE ONE Cefazolin Sodium 3 gm/ Sodium 100 mls @ 200 mls/hr 06/24/24 18:08 Chloride IV ONCE ERIK venlafaxine 75 mg capsule,extended release 24 hr 150 mg PO DAILY 12/16/22 vit no.95-ferrous fumarate 28 mg-folic acid 800 mcg tablet () 1 ea PO DAILY 05/08/23 tamsulosin 0.4 mg capsule (Flomax) 0.4 mg PO DAILY #14 caps 02/09/24 Allergies Allergy/AdvReac Type Severity Reaction Status Date / Time nitrofurantoin (From Allergy Intermediate Rash Verified 06/24/24 12:18 Macrobid) Vital Signs O2 Saturation: 100 Patient Review Patient Review Pertinent Tests Reviewed [facility] Surgical History Surgical History (Updated 06/24/24 @ 17:56 by Magalie Oneal MD) H/O lithotripsy Family History Family History (Updated 06/24/24 @ 17:56 by Magalie Oneal MD) Mother Polycystic kidney disease Social History Social History (Updated 06/24/24 @ 17:57 by Magalie Oneal MD) Smoking Status: Never smoker Do you vape?: No Living arrangement: At home Marital Status: Living Condition: With family Level: Independent Do you feel safe in your home environment?: Yes Suffered physical, verbal, emotional, or financial abuse?: No Frequency: Occasional Substance Use: cannabis (any form) Are you sexually active?: Yes 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: No Are you following a special diet: Yes Special Diet Details: low fat for gallstones Exam Exam GEN: Mild distress due to pain, appears stated age, alert and oriented HEENT: NCAT, MMM, EOMI NEURO: CN II-XII grossly intact, no obvious focal deficits CV: RRR PULM: non labored, on RA ABD: soft, obese with moderate tenderness in the right upper quadrant, slight tenderness in the epigastric region, no rebound or guarding CIRCULATORY: no clubbing, cyanosis, or edema SKIN: no lesions appreciated LYMPH: no obvious lymphadenopathy MSK: 4/4 strength in all extremities PSYCH: Affect is appropriate Review of Systems Status of ROS: 10 or more systems reviewed and unremarkable except as noted in history and below Assessment & Plan Assessment & Plan Assessment & Plan: 34 y/o F with: 1. acute on chronic cholecystitis - patient has had symptoms for over a year off and on, persistently for the last several days - labs and imaging consistent with diagnosis - I recommend cholecystectomy emergently to relieve symptoms - pre op abx ordered 2. choledocholithiasis - seen on sono - no LFT elevation, very mild lipase elevation - plan for intraoperative cholangiogram, possible bile duct exploration - If stone(s) seen and unable to clear duct, patient may need ERCP. I did discuss this plan with the patient. I discussed the natural history of acute cholecystitis and choledocholithiaisis with the patient. We also discussed the risks, benefits, and alternatives of laparoscopic cholecystectomy with cholangiogram, possible open procedure, and possible bile duct exploration. We discussed surgical risks including bleeding, infection, and damage to surrounding structures. We also discussed the intraoperative and postoperative plan including the possible need for drain placement. The patient voiced understanding, her questions were answered, and she wished to proceed with surgery. A consent was signed by the patient. 3. PCKD - continue home meds post op - avoid nephrotoxic medications Plan for surgery tonight. Given the patient's several day history of intolerance to PO intake, and the late hour of her surgery, I anticipate she will stay the night. Likely discharge home tomorrow if she is able to tolerate a diet and pain is controlled with oral medication.
[2024-06-24] MEDS ORDERED: ROCURONIUM 50 MG/5 ML VIAL ONE (18:10)
[2024-06-24] MEDS ORDERED: MIDAZOLAM 2 MG/2 ML VIAL ONE (18:10)
[2024-06-24] MEDS ORDERED: PROPOFOL 200 MG/20 ML VIAL IVP ONE (18:10)
[2024-06-24] MEDS ORDERED: LIDOCAINE-PF 2% 10 ML AMP SUBQ ONE (18:10)
[2024-06-24] MEDS ORDERED: fentaNYL 100 MCG/2 ML VIAL ONE (18:10)
[2024-06-24] MEDS ORDERED: ONDANSETRON 4 MG/2 ML VIAL IVP PRN (18:43)
[2024-06-24] MEDS: metroNIDAZOLE 500 MG/100 ML 500 MG/100 ML BAG IV ONE (19:00)
[2024-06-24] MEDS: ceFAZolin 3 GM in SODIUM CHLORIDE 0.9% 100ML 100 ML IV ONE (19:00)
[2024-06-24] MEDS: SODIUM CHLORIDE 0.9% 1,000 ML IV SCH (19:47)
[2024-06-24] MEDS: ACETAMINOPHEN 1,000 MG/100 ML 1,000 MG/100 ML BAG IV PRN (20:52)
[2024-06-25] MEDS: HYDROmorphone 0.5 MG/0.5 ML SYRINGE IVP PRN (01:19)
[2024-06-25] MEDS ORDERED: iohexoL-240 20 ML VIAL IVP ONE ×2 (08:10→12:35)
[2024-06-25] MEDS ORDERED: LIDOCAINE 1%-EPI 1:100000 20 ML MDV ONE (08:10)
[2024-06-25] MEDS ORDERED: BUPIVACAINE 0.5% PF 10 ML VIAL ONE (08:11)
--- NOTE | 2024-06-25 08:27 | PROVIDER PROGRESS NOTE ---
Subjective Other Other Information/Narrative: Pain and nausea controlled this morning. No questions or concerns re surgery. Review of Systems Status of ROS: 10 or more systems reviewed and unremarkable except as noted in history and below Exam Exam GEN: NAD, alert and oriented CV: RRR PULM: non labored, on RA ABD: soft, obese, moderate tenderness in the right upper quadrant, slight epi gastric TTP, no rebound or guarding EXT: no clubbing, cyanosis, or edema Impression/Plan Problem List (1) Choledocholithiasis: (2) Autosomal dominant polycystic kidney disease: (3) Biliary colic: (4) Adult BMI 45.0-49.9 kg/sq m: Plan 34 y/o F with: 1. acute on chronic cholecystitis with cholelithiasis - patient has had symptoms for over a year off and on, persistently for the last several days - labs and imaging consistent with diagnosis - AM labs pending - I recommend cholecystectomy today to relieve current and prevent future symptoms - pre op abx ordered 2. choledocholithiasis - seen on sono, bile duct appears dilated but not obstructed by stone - no LFT elevation, very mild lipase elevation. Repeat labs this AM pending - plan for intraoperative cholangiogram, possible bile duct exploration - If stone(s) seen and unable to clear duct, patient may need ERCP. I did discuss this plan with the patient. I discussed the natural history of acute cholecystitis and choledocholithiaisis with the patient. We also discussed the risks, benefits, and alternatives of laparoscopic cholecystectomy with cholangiogram, possible open procedure, and possible bile duct exploration. We discussed surgical risks including bleeding, infection, and damage to surrounding structures. We also discussed the intraoperative and postoperative plan including the possible need for drain placement. The patient voiced understanding, her questions were answered, and she wished to proceed with surgery. A consent was signed by the patient. 3. PCKD - continue home meds post op - avoid nephrotoxic medications Plan for surgery today. I anticipate discharge after surgery when patient able to tolerate diet and pain controlled with PO medication.
[2024-06-25 08:35] LABS: ALBUMIN 4.3 g/dL (3.2-5.5); ALBUMIN/GLOBULIN RATIO 1.3 (1.0-2.2); BILIRUBIN,TOTAL 0.7 mg/dL (0.2-1.0); CREATININE 0.7 mg/dL (0.6-1.3); POTASSIUM 4.5 mmol/L (3.5-4.5); TOTAL PROTEIN 7.6 g/dL (6.4-8.9)
[2024-06-25 08:36] LABS: HCT - HEMATOCRIT 46.6 % (37.0-47.0); HGB - HEMOGLOBIN 14.2 g/dL (12.0-16.0); MEAN CORPUSCULAR HEMOGLOBIN 28.1 pg (27.0-31.0); MEAN CORPUSCULAR HGB CONC 30.5 g/dL (32.0-36.0); MEAN CORPUSCULAR VOLUME 92.3 fL (81.0-99.0); MEAN PLATELET VOLUME 12.1 fL (7.9-10.8); RED BLOOD COUNT 5.05 10^6/uL (4.20-5.40); RED CELL DISTRIBUTION WIDTH 13.2 % (12.0-15.0)
[2024-06-25] MEDS ORDERED: ceFAZolin 3 GM in SODIUM CHLORIDE 0.9% 100ML 100 ML IV ONE (10:15)
[2024-06-25] MEDS ORDERED: metroNIDAZOLE 500 MG/100 ML 500 MG/100 ML BAG IV SCH (10:15)
[2024-06-25] MEDS ORDERED: ROCURONIUM 50 MG/5 ML VIAL ONE ×3 (10:44→12:46)
[2024-06-25] MEDS ORDERED: PROPOFOL 200 MG/20 ML VIAL IVP ONE (10:44)
[2024-06-25] MEDS ORDERED: MIDAZOLAM 2 MG/2 ML VIAL ONE (10:45)
[2024-06-25] MEDS ORDERED: fentaNYL 100 MCG/2 ML VIAL ONE ×3 (10:45→15:07)
[2024-06-25 10:48] LABS: HCT - HEMATOCRIT 42.1 % (37.0-47.0); HGB - HEMOGLOBIN 13.2 g/dL (12.0-16.0); MEAN CORPUSCULAR HEMOGLOBIN 27.8 pg (27.0-31.0); MEAN CORPUSCULAR HGB CONC 31.4 g/dL (32.0-36.0); MEAN CORPUSCULAR VOLUME 88.8 fL (81.0-99.0); MEAN PLATELET VOLUME 11.5 fL (7.9-10.8); RED BLOOD COUNT 4.74 10^6/uL (4.20-5.40); RED CELL DISTRIBUTION WIDTH 13.2 % (12.0-15.0); WHITE BLOOD COUNT 7.2 x10^3/uL (4.8-10.8)
[2024-06-25] MEDS ORDERED: metroNIDAZOLE 500 MG/100 ML 500 MG/100 ML BAG ONE (11:30)
[2024-06-25] MEDS ORDERED: ACETAMINOPHEN 1,000 MG/100 ML 1,000 MG/100 ML BAG IV ONE (11:35)
[2024-06-25] MEDS ORDERED: DEXAMETHASONE 4 MG/ML VIAL ONE (12:03)
[2024-06-25] MEDS ORDERED: ONDANSETRON 4 MG/2 ML VIAL ONE (12:03)
[2024-06-25] MEDS ORDERED: HYDROmorphone 1 MG/ML SYRINGE ONE ×2 (12:05→14:27)
[2024-06-25] MEDS ORDERED: GLUCAGON 1 MG/ML VIAL ONE (12:35)
[2024-06-25] MEDS ORDERED: SUGAMMADEX 200 MG/2 ML VIAL IVP ONE (14:12)
[2024-06-25] MEDS ORDERED: ATROPINE ABBOJECT 1 MG/10 ML SYRINGE IVP PRN (14:42)
[2024-06-25] MEDS ORDERED: MORPHINE 2 MG/ML CARPUJECT IVP PRN (14:42)
[2024-06-25] MEDS ORDERED: HYDROmorphone 0.5 MG/0.5 ML SYRINGE IVP PRN (14:42)
[2024-06-25] MEDS ORDERED: NALOXONE 0.4 MG/ML VIAL IVP PRN (14:42)
[2024-06-25] MEDS: ONDANSETRON 4 MG/2 ML VIAL IVP PRN (14:50)
[2024-06-25] MEDS ORDERED: LACTATED RINGERS 1,000 ML IV SCH (15:00)
[2024-06-25] MEDS: fentaNYL 100 MCG/2 ML VIAL IVP PRN (15:09)
--- NOTE | 2024-06-25 15:15 | OPERATIVE REPORT ---
Operative Report General Procedure Data: Operation Date: 06/25/24 10:00 Proposed Procedures p Laparoscopic Cholecystectomy(Not Applicable) - E Hiral Oneal MD Actual Procedures LAPAROSCOPIC CHOLECYSTECTOMY WITH CHOLANGIOGRAM, ATTEMPTED COMMON DUCT EXPLORATION Anesthesia Type General Case Staff Anesthesia Provider: Ariella Browne Times Into Recovery: 06/25/24 14:42 Procedure Start: 06/25/24 11:41 Procedure End: 06/25/24 14:37 Time out: 06/25/24 11:40 Pre-Op Diagnosis: chronic calculus cholecystitis, choledocholithiasis Post Op Diagnosis: chronic calculus cholecystitis, choledocholithiasis Procedure Note Intake, IV Amount (ml): 1,800 Estimated Blood Loss (ml): 10 Pathology: 1. gallbladder and contents Indications: This is a 34-year-old female who has been having intermittent biliary symptoms since November 2022 when she was diagnosed with gallstones. At the time of her diagnosis, she was . She delivered her son in February 2023. She cut down on the fat in her diet as much as possible. Over the last year, she has noticed increasing symptoms, despite changes to her diet. For the last several days, the patient has had persistent achy right upper quadrant pain with sharp exacerbations when she tries to eat or drink and with activities like bending over. She has not been able to keep any significant food or liquids down since Sunday. She has had multiple episodes of bilious and nonbilious vomiting. She has felt cold quite a bit over the last couple of days but denies any fevers. Workup in the ED revealed choledocholithiasis and borderline gallbladder wall thickening. She was seen and evaluated and we discussed the natural history of acute cholecystitis and choledocholithiaisis. We also discussed the risks, benefits, and alternatives of laparoscopic cholecystectomy with cholangiogram, possible open procedure, and possible bile duct exploration. We discussed surgical risks including bleeding, infection, and damage to surrounding structures. We also discussed the intraoperative and postoperative plan including the possible need for drain placement. The patient voiced understanding, her questions were answered, and she wished to proceed with surgery. A consent was signed by the patient. Findings: 1. chronic cholecystitis 2. cholelithiasis 3. choledocholithiasis 4. tortuous cystic duct, not amenable to transcystic cbd exploration Complications: none Other Other Information/Narrative: The patient was brought to the operative suite and placed in the supine position. General endotracheal anesthesia was induced. Preoperative antibiotics were given. ERAS protocol was partially followed, as possible given the patient's pre op nausea. A preop surgical timeout was performed. Local anesthetic was injected into the skin and subcutaneous tissues just inferior to the umbilicus. An 11 blade scalpel was used to make a 5 mm transverse skin incision in this location. Next, a hemostat was used to spread the tissues down to the level of the fascia and a Purnima clamp was used to grasp and elevate the umbilical stalk. A Varess needle was used to gain access to the peritoneal space. Low flow insufflation revealed low pressures and then high flow insufflation was undertaken to 15 mmHg. Next, the Varess needle was removed and a 5 mm laparoscopic port was inserted in this location. Through this port, a 5 mm 30 degree laparoscope was inserted. On inspection of the abdomen no injury was caused on entry. Next, the patient was placed in reverse Trendelenburg and rotated slightly to the left. Two 5 mm ports were inserted in the right upper quadrant, one in the anterior axillary line and the other in the midclavicular line. Also, a 12 mm port was inserted in the subxiphoid region. All ports were placed by first anesthetizing the skin and subcutaneous tissues with local anesthetic, then by making an appropriate length incision with an 11 blade scalpel, and finally by placing the port under direct laparoscopic vision. Once the ports were in place, a ratcheted, toothed grasper was used to elevate the fundus of the gallbladder toward the patient's right shoulder. The gallbladder was long and floppy. Next, the peritoneum was incised starting at the hilum of the gallbladder and working toward the fundus along the gallbladder liver interface on the medial and lateral aspects of the gallbladder. Next, attention was returned to the hilum of the gallbladder. The alveolar tissues in this region were taken down with blunt and sharp dissection with electrocautery taking great care not to cauterize though any tissue I could not easily see through. Two ductal structures were isolated and skeletonized such that each ductal structure could be visualized with liver present on either side. The cystic plate was also developed. At this time, it was felt that a critical view of safety had been obtained. Next, a clip was placed distally, that is toward the gallbladder, on the cystic duct and just proximal to this a ductotomy was performed. A cholangiogram catheter was placed within the duct and it was flushed with saline. There was no leakage and it flushed easily. Clips were also placed proximally and distally on the cystic artery. Full strength Isovue dye was then placed on the cholangiogram catheter and a cholangiogram was performed. The cholangiogram demonstrated a stone in the distal common bile duct. Glucagon was given and three minutes elapsed. A repeat cholangiogram demonstrated some contrast in the duodenum but also a persistent stone in the common duct. The common duct was notably dilated and the right and left hepatic systems filled well. At this time, I elected to proceed with transcystic common duct exploration and asked my partner, Dr. Mendoza to assist. Next, the cholangiogram catheter was removed. and a stab incision was made in the right upper quadrant to pass the choledochoscope. A wire, dilator, and sheath were passed through this incision and multiple attempts were made to pass the wire through the cystic duct. We also FaceTimed with the choledochoscope rep to determine if any additional maneuvers might be successful. Ultimately, it was felt that the anatomy was not favorable to transcystic canulation and this was aborted. A clip and endoloop were placed proximally on the cystic duct. The cystic duct and cystic artery were divided using laparoscopic scissors between the clips. Next the gallbladder was dissected off of the liver bed. Once it was completely freed, the gallbladder was placed in an Endo Catch bag and removed through the epigastric port. The epigastric port was replaced and suction and irrigation were used to remove any fluid from the right upper quadrant. This was done until the fluid returned was clear. Next, a laparoscopic fascial closure device was used to place a single, interrupted 0 Vicryl suture at the epigastric port. This reapproximated the fascia well. The remaining ports were removed under direct laparoscopic vision and the abdomen was deflated. Next, the skin edges were reapproximated with 4-0 Monocryl in an interrupted subcuticular fashion. A sterile dressing of skin glue was placed. The patient tolerated the procedure well. The patient was extubated in the operating room and transferred to the recovery room in stable condition. There were no complications. She will need postoperative lab trending, and likely an ERCP.
[2024-06-25] MEDS: METOCLOPRAMIDE 10 MG/2 ML VIAL IVP PRN (16:33)
[2024-06-25] MEDS: PROCHLORPERAZINE 10 MG/2 ML VIAL IVP ONE (17:51)
--- NOTE | 2024-06-25 18:39 | PHARMACY PROGRESS NOTE ---
Best Possible Medication History Admit Date and Time: Home Medications Medication Instructions Recorded Confirmed Type venlafaxine 75 mg capsule,extended 75 mg PO HS 12/16/22 06/25/24 History release 24 hr vit no.95-ferrous 1 ea PO DAILY 05/08/23 06/25/24 History fumarate 28 mg-folic acid 800 mcg tablet () Processed by: Nursing Medications reviewed in ED?: No Medication History completed: Yes Patient Interview: Completed (by nursing staff) Secondary Source(s): Insurance records [facility] Statement: As the person ultimately responsible for medication therapy, providers are able to order a medication from an existing home medication list in [facility] via the "Reconcile Routine" prior to Confirmation of that medication by program support assistant. Such practice is discouraged except when the physician, in their clinical judgment, deems that a medical need exists for a medication without regard to previous use.
[2024-06-25] MEDS: oxyCODONE 5 MG TABLET PO PRN (18:48)
[2024-06-25] MEDS: LACTATED RINGERS 1,000 ML IV SCH (18:49)
--- NOTE | 2024-06-25 19:48 | ANESTHESIA POST OP EVALUATION ---
Anesthesia Post Eval Post Anesthesia Eval Vitals: Last Vital Signs Temp 37.1 C 06/25/24 18:45 Pulse 81 06/25/24 18:45 Resp 18 06/25/24 18:45 BP 170/89 H 06/25/24 18:45 Pulse Ox 96 06/25/24 18:45 O2 Flow Rate 98 06/25/24 07:53 CV Function Including HR & BP: Stable Pain Control: Satisfactory Nausea & Vomiting: Negative Mental Status: Baseline Respiratory Status: Airway Patent Hydration Status: Satisfactory Anesthesia Complications: None
[2024-06-25] MEDS: VENLAFAXINE ER 75 MG CAPSULE PO SCH (20:35)
[2024-06-26 05:57] LABS: BILIRUBIN,TOTAL 0.5 mg/dL (0.2-1.0); CALCIUM 9.1 mg/dL (8.5-10.3); CREATININE 0.8 mg/dL (0.6-1.3); POTASSIUM 3.8 mmol/L (3.5-4.5)
--- NOTE | 2024-06-26 07:28 | PROVIDER PROGRESS NOTE ---
Subjective General Admit Date: 06/26/24 Other Other Information/Narrative: Pain controlled. Patient with significant post op nausea last night, feeling much better this morning. Tolerating clears in small amounts. Review of Systems Status of ROS: 10 or more systems reviewed and unremarkable except as noted in history and below Exam Exam GEN: NAD, alert and oriented CV: RRR PULM: non labored, on RA ABD: soft, obese, appropriate incisional ttp, no rebound or guarding EXT: no clubbing, cyanosis, or edema Impression/Plan Problem List (1) Choledocholithiasis: (2) Autosomal dominant polycystic kidney disease: (3) Biliary colic: (4) Adult BMI 45.0-49.9 kg/sq m: Plan 34 y/o F with: 1. acute on chronic cholecystitis with cholelithiasis - s/p lap sujey with IOC and attempted cbd exploration on 06/25 - incisions c/d/i 2. choledocholithiasis - seen on sono, bile duct appears dilated but not obstructed by stone - stone present and partially obstructing on cholangiogram - attempted cbd exploration not successful - no LFT elevation, lipase wnl 3. PCKD - continue home meds - avoid nephrotoxic medications Plan for ERCP today. Patient will discharge this morning and go to [facility] under the care of Dr. Johnson for outpatient ERCP. Her procedure is scheduled for 1529 today.
[2024-06-26 07:33] LABS: HCT - HEMATOCRIT 37.4 % (37.0-47.0); HGB - HEMOGLOBIN 12.2 g/dL (12.0-16.0); MEAN CORPUSCULAR HEMOGLOBIN 28.6 pg (27.0-31.0); MEAN CORPUSCULAR HGB CONC 32.6 g/dL (32.0-36.0); MEAN CORPUSCULAR VOLUME 87.8 fL (81.0-99.0); MEAN PLATELET VOLUME 11.8 fL (7.9-10.8); RED BLOOD COUNT 4.26 10^6/uL (4.20-5.40); RED CELL DISTRIBUTION WIDTH 13.2 % (12.0-15.0); WHITE BLOOD COUNT 8.7 x10^3/uL (4.8-10.8)
[2024-06-26 07:59] VITALS: BP 152/90; TEMP 98.4; O2SAT 96
[2024-06-26] MEDS: TAMSULOSIN 0.4 MG CAPSULE PO SCH (08:51)
[2024-06-26] MEDS: polyethylene glycoL 3350 17 GM PACKET PO SCH (08:52)
[2024-06-26] MEDS ORDERED: ENOXAPARIN 40 MG/0.4 ML SYRINGE SUBQ SCH (09:00)
[2024-06-26] MEDS: ACETAMINOPHEN 325 MG TABLET PO PRN (09:50)
--- NOTE | 2024-06-26 11:51 | XRAY Report ---
PROCEDURE: FL OR C-Arm Procedure INDICATIONS: Surgical Procedure TECHNIQUE: Intraoperative fluoroscopic guidance was provided and low-resolution fluoroscopic spot doni ms were obtained. COMPARISON: None. FINDINGS: Low-resolution intraoperative spot films show intraoperative cholangiogram in process. Comm on bile duct is dilated, and there appears to be a distal CBD calculus which is not entirely obstruct letha. Contrast does eventually extend around the calculus and into small bowel normal.. IMPRESSION: Intraoperative cholangiogram with nonobstructive distal CBD calculus. Reviewed by: Thom Fry MD on 06/26/2024 10:49 AM [facility] Approved by: Thom Fry MD on 06/26/2024 10:49 AM [facility] Station ID: [id number]
== END 2024-06-26 11:54 | disposition home or self-care (01) ==
LOC: ED 12:06 → MS3 17:50 → SDS 18:08 → MS3 19:08
PROVIDERS: ADMIT Surgery; ATTEND Surgery
DX: E66.9 Obesity, unspecified; K80.64 Calculus of gallbladder and bile duct with chronic cholecystitis without obstruction; Q44.5 Other congenital malformations of bile ducts; N28.1 Cyst of kidney, acquired; Z68.41 Body mass index [BMI] 40.0-44.9, adult